=== PATIENT | female | born 1940 | race Caucasian/White ===

== ENCOUNTER → 2016-10-13 | Outpatient (CLI) | payer MEDICARE ==
[~2016-10-13] MED LIST: ALBU17IN INH; ALBU83IN INH; AMLO5TAB2 PO; ARNU1INH3 INH; ASPI1TAB PO; CALCCHW19 PO; CARV12.5 PO; CARV6.25 PO; CENTTAB12 PO; CO-E50CA PO; COLA100C5 PO; COMBAER6 INH; FLON1SPR; FOSA70TA PO; LEVO500T3 PO; LISI-538 PO; OMNASPR2; PANT40TA2 PO; PRED1TABL PO; PRED20TA PO; QVAR1AER2 INH; SALI0.6523; SIMV20TA2 PO; SPIR1CAP INH; VITA100066 PO; VITA500C24 PO
--- NOTE | 2016-10-13 09:54 | REPMRS ---
Patient History The patient states she has not had a clinical breast exam in over a year. Patient is postmenopausal and is nulliparous. Family history of prostate cancer in paternal grandfather at age 50 or over, breast cancer in sister at age 50 or over, breast cancer in paternal aunt at age 50 or over, and colorectal cancer in paternal grandmother at age 50 or over. Benign excisional biopsy of the left breast. Digital Woman Screen Mammo: October 13, 2016 - Exam #: [id number] Bilateral CC and MLO view(s) were taken. Technologist: Makenna Andrade, Technologist Prior study comparison: October 11, 2015, digital woman screen mammo performed at [facility]. October 09, 2014, digital woman screen mammo performed at [facility] [employer] [facility]. FINDINGS: There are scattered fibroglandular densities. There has been no change in the appearance of the mammogram from the prior studies. There is a mild amount of residual fibroglandular tissue which is fairly symmetric. There is no interval development of dominant mass, architectural distortion, or clustered microcalcification suggestive of malignancy. ASSESSMENT: BI-RADS/ACR category 1 mammogram. Negative. Recommendation Routine screening mammogram in 1 year (for women over age 40). This mammogram was interpreted with the aid of an FDA-approved computer-aided dectection system. Electronically Signed By: Jerome Hurley MD 10/13/16 [id number]
== END ==
LOC: M WHC 08:50
PROVIDERS: ATTEND Family Medicine
DX: Z12.31 Encounter for screening mammogram for malignant neoplasm of breast (principal); Z78.0 Asymptomatic menopausal state; Z80.3 Family history of malignant neoplasm of breast

== ENCOUNTER 2016-12-22 06:10 | Inpatient (IN) | payer MEDICARE ==
[~2016-12-22] VITALS: Ht 152.4 cm; Wt 70.0 kg
[~2016-12-22 06:10] MED LIST changes: -AMLO5TAB2 PO; -ARNU1INH3 INH; -CARV12.5 PO; -COMBAER6 INH; -FLON1SPR; -LEVO500T3 PO; -SALI0.6523
[2016-12-22] MEDS ORDERED: CARV12.5 PO (06:31)
[2016-12-22 06:58] LABS: MEAN CORPUSCULAR HEMOGLOBIN 31.9 pg (27.0-33.0); MEAN CORPUSCULAR HGB CONC 34.1 g/dl (32.0-36.5); MEAN CORPUSCULAR VOLUME 93.4 fl (80.0-96.0); PLATELET COUNT, AUTOMATED 225 10^3/uL (150-450); RED CELL DISTRIBUTION WIDTH 14.1 % (11.5-14.5); WHITE BLOOD COUNT 19.7 10^3/uL (4.0-10.0)
[2016-12-22] MEDS ORDERED: NS 500 ML IV ONE (07:00)
[2016-12-22 07:04] LABS: ADD MANUAL DIFFER YES; DIFF SLIDE NUMBER 134; LEFT SHIFT POS FLAG; POSITIVE MORPH POS FLAG
[2016-12-22 07:20] LABS: BANDS 3 % (< 11); TOXIC VACUOLATION 2+
[2016-12-22 07:43] LABS: ALBUMIN 2.1 GM/DL (3.2-5.2); ALBUMIN/GLOBULIN RATIO 0.45 (1.00-1.93); ALKALINE PHOSPHATASE 92 U/L (45-117); ALT/SGPT 14 U/L (12-78); ANION GAP 5 MEQ/L (8-16); AST/SGOT 13 U/L (15-37); BILIRUBIN,DIRECT 0.3 MG/DL (0.0-0.2); BILIRUBIN,TOTAL 0.6 MG/DL (0.2-1.0); BLOOD UREA NITROGEN 31 MG/DL (7-18); CALCIUM LEVEL 8.5 MG/DL (8.8-10.2); CARBON DIOXIDE LEVEL 30 MEQ/L (21-32); CHLORIDE LEVEL 103 MEQ/L (98-107); CREATININE FOR GFR 0.67 MG/DL (0.55-1.02); GLOMERULAR FILTRATION RATE > 60.0 (>39); GLUCOSE, FASTING 96 MG/DL (83-110); POTASSIUM SERUM 3.1 MEQ/L (3.5-5.1); SODIUM LEVEL 138 MEQ/L (136-145); TOTAL PROTEIN 6.8 GM/DL (6.4-8.2)
[2016-12-22] MEDS ORDERED: ONDANSETRON 4MG/2ML VIAL (J2405) IV ONE (07:45)
[2016-12-22] MEDS ORDERED: MORPHINE 2 MG/ML 1ML SYRINGE IV ONE (07:45)
[2016-12-22] MEDS: TIOTROPIUM INHALER/CAPSULE (SPIRIVA) INH SCH (08:00)
[2016-12-22] MEDS ORDERED: AZITHROMYCIN INJ 500 MG, VIAL MATE ADAPTER 1 EACH in D5W 250 ML IV ONE (08:30)
[2016-12-22] MEDS ORDERED: cefTRIAXone SOD 2 GM in D5W 50 ML IV ONE (08:30)
--- NOTE | 2016-12-22 08:51 | REP ---
ABDOMINAL SERIES: Supine and erect views of the abdomen demonstrate no free air and no evidence for obstruction. Mild air is seen throughout a nondistended colon. No significantly dilated small bowel loops are seen. Metallic clips are seen in the right upper quadrant. There are mild degenerative changes of the spine. An accompanying view of the chest demonstrates infiltrate and pleural effusion on the right inferiorly. The left lung appears clear. IMPRESSION: No free air or obstruction. Right lung infiltrate and effusion. Signed by Jerome Hurley MD 12/23/2016 07:37 P
[2016-12-22] MEDS ORDERED: POTASSIUM CHLORIDE 10 MEQ SR TABLET PO ONE (09:00)
[2016-12-22] MEDS ORDERED: LISINOPRIL 20 MG TAB PO SCH (09:00)
[2016-12-22] MEDS ORDERED: amLODIPine 5 MG TAB PO SCH (09:00)
[2016-12-22] MEDS ORDERED: CARVedilol 12.5 MG TAB PO SCH (09:00)
[2016-12-22] MEDS ORDERED: SALI0.6523 (09:34)
[2016-12-22] MEDS ORDERED: FLON1SPR (09:34)
[2016-12-22] MEDS ORDERED: AMLO5TAB2 PO (09:34)
[2016-12-22] MEDS ORDERED: ARNU1INH3 INH (09:34)
[2016-12-22] MEDS ORDERED: POTASSIUM CHL PWD 20 MEQ PACKET PO ONE (09:45)
--- NOTE | 2016-12-22 09:51 | REP ---
CT CHEST WITHOUT IV CONTRAST: CT chest was performed without IV contrast. There is diffuse heterogeneous consolidation with air bronchograms in the right lower lobe. Underlying mass cannot be excluded. Mildly enlarged mediastinal lymph nodes are seen. There is a small right pleural effusion. There is mild fibroatelectatic change in the left lung base. There is no pericardial effusion. Heart is not significantly enlarged. Patient has had a prior cholecystectomy. No adrenal nodule is seen. There appears to be a small cyst in the upper pole of the left kidney. IMPRESSION: Diffuse heterogeneous consolidation in the right lower lobe. Underlying mass cannot be excluded without IV contrast. Mild mediastinal adenopathy. Small right pleural effusion. Signed by Jerome Hurley MD 12/23/2016 07:48 P
[2016-12-22] MEDS ORDERED: ONDANSETRON 4MG/2ML VIAL (J2405) IV PRN (10:15)
[2016-12-22] MEDS ORDERED: ACETAMINOPHEN TAB 650MG DOSE (2X325MG) PO PRN (10:15)
[2016-12-22] MEDS ORDERED: ALBUTEROL SULFATE 2.5 MG/0.5 ML INH NEB SOLN INH PRN (10:15)
[2016-12-22 12:00] VITALS: BP 130/57
[2016-12-22] MEDS: CO-ENZYME Q10 50 MG CAP PO SCH (13:17)
[2016-12-22] MEDS: HEPARIN SOD (PORCINE) 5000 UNITS/ML VIAL SC SCH ×2 (13:17→20:33)
[2016-12-22] MEDS: MULTIVITAMINS/MINERALS THERAP 1 TAB PO SCH (13:17)
[2016-12-22] MEDS: predniSONE 1 MG TAB PO SCH (13:18)
[2016-12-22 13:19] VITALS: BP 135/65
[2016-12-22] MEDS: PANTOPRAZOLE 40MG TAB (PROTONIX) PO SCH (13:19)
[2016-12-22] MEDS: VITAMIN D 1,000 INTERNATIONAL UNITS TABLET PO SCH (13:20)
[2016-12-22] MEDS: ASCORBIC ACID 500 MG TAB PO SCH (13:20)
[2016-12-22] MEDS: SODIUM CHLORIDE NASAL 0.65% SPRAY BTL (OCEAN) SCH (13:21)
[2016-12-22] MEDS: FLUTICASONE PROP 0.05% NASAL SPRAY 16 GM (FLONASE) SCH (13:21)
--- NOTE | 2016-12-22 15:30 | HPE ---
DATE OF ADMISSION: 12/22/2016 PRIMARY CARE PROVIDER: Dr. Shelbie Izaguirre OUTPATIENT BIOCHEMISTRY TECHNICIAN: Dr. Sepulveda HISTORY OF PRESENT ILLNESS: This patient is a 76-year-old female with a past medical history of chronic obstructive pulmonary disease (COPD), hypertension, hypercholesterolemia, remote history of premature ventricular contraction (PVCs), and history of diverticulitis who presented to [facility] on 12/22/2016 for worsening shortness of breath. The patient stated she started having nausea, vomiting, and diarrhea since 12/19/2016. Then, the patient noted to have fever on 12/21/2016. In the last 24 hours, the patient also started noticing to have increased shortness of breath, increased productive cough, and the patient also noted to have significant pain in the right lateral rib radiating to the right shoulder blade. When the patient came to the emergency room, the patient was found to have elevated white count with right lower lobe consolidation. The patient has a history of COPD. At baseline, the patient does not require oxygen. Her sputum usually is clear. During the current episode, the patient does not notice any sputum color changes. Denies any recent sick contact. Denies any blood in the vomit or stool. PAST MEDICAL HISTORY: 1. Chronic obstructive pulmonary disease (COPD), not on home oxygen. 2. Hypertension. 3. Hypercholesterolemia. 4. History of diverticulitis. 5. Remote history of premature ventricular contractions (PVCs). PAST SURGICAL HISTORY: 1. Lumpectomy in , benign nodes. 2. Cholecystectomy in 1987. HOME MEDICATIONS: - Ventolin two puff inhalation every six hours as needed - amlodipine 5 mg by mouth daily - Ellipta 200 mcg inhalation daily - vitamin C 500 mg by mouth daily - aspirin 81 mg by mouth at bedtime - calcium/vitamin D supplement one tablet by mouth twice a day - carvedilol 12.5 mg by mouth twice a day - vitamin D 1000 units by mouth daily - Colace 100 mg by mouth at bedtime - lisinopril 20 mg by mouth twice a day - multivitamin one tablet by mouth daily - pantoprazole 40 mg by mouth daily - prednisone 2 mg by mouth daily - simvastatin 20 mg by mouth at bedtime - Spiriva 18 mcg inhalation every evening ALLERGIES: 1. SULFA (nausea and vomiting). 2. ORAL BIAXIN (severe stomach upset). SOCIAL HISTORY: The patient quit smoking in 2008, half a pack for more than 25 years. She drinks a few beers weekly. 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 The patient is a full code. REVIEW OF SYSTEMS: GENERAL: Positive fever. No shivering chills. Poor oral intake since 12/19/2016. HEENT: No vision changes. No auditory changes. CARDIOVASCULAR: No chest pain. No palpitation. RESPIRATORY: Increased shortness of breath, increased productive cough, and also has pain at the right lateral rib radiating to the right shoulder blade. GASTROINTESTINAL (GI): Positive nausea, vomiting, and diarrhea. No blood in the vomit or stool. MUSCULOSKELETAL: Denies any joint pain or muscle pain. NEUROLOGICAL: No numbness or tingling. OBJECTIVE: VITAL SIGNS: Temperature is 98.8, pulse is 97, respirations 20, blood pressure 130/57, pulse oximetry is 88% with 1-2 liters nasal cannula. GENERAL: Fatigues, no sign of acute distress, alert and oriented times three. HEENT: Normocephalic, atraumatic. Extraocular motor grossly intact. CARDIOVASCULAR: Positive S1, S2, regular rate. LUNGS: Decreased breath sounds on the right lower lobe. No significant wheezes appreciated. ABDOMEN: Soft, nontender, nondistended. Bowel sounds present. EXTREMITIES: No edema. No sign of cyanosis. NEUROLOGIC: Sensation to fine touch grossly intact. Muscle strength 5/5. LABORATORY DATA: WBC 18.7, hemoglobin 13, hematocrit 38.1, platelet count is 225. Sodium is 138, potassium 3.5, chloride is 103, carbon dioxide 30, BUN 31, creatinine 0.67, GFR greater than 60, fasting glucose 96, lactic acid 1.4, calcium 8.5, total bilirubin is 0.6, direct bilirubin is 0.3, AST 13, ALT 14, alkaline phosphatase is 92, total protein 6.8, albumin 2.1, lipase is 46. Blood cultures pending x2 sets. IMAGING STUDIES: Abdominal x-ray showed no free air or obstruction. Right lung infiltrate or infusion. CT of the chest without contrast showed diffuse heterogenous consolidation in the right lower lobe. Underlying mass cannot be excluded without IV contrast. Mild mediastinal adenopathy. Small right pleural effusion. ASSESSMENT AND PLAN: 1. Acute respiratory distress secondary to right lower lobe consolidation. We will treat the patient for community-acquired pneumonia. We will start the patient on Rocephin and azithromycin. We will titrate the oxygen between 88% to 92%. The patient has a history of chronic obstructive pulmonary disease (COPD) but she does not require oxygen at baseline. Currently, the patient requires at least two liters nasal cannula. 2. COPD. She does not have any increased wheeze. The patient does have increased cough and shortness of breath from current right lower lobe pneumonia. Continue to titrate the patient with nasal cannula to maintain oxygen saturation of 88% to 92%. The patient is on chronic steroids. 3. Hypertension. The patient is on amlodipine 5 mg by mouth daily, carvedilol 12.5 mg by mouth twice a day, lisinopril 20 mg by mouth twice a day. During admission, the patient had a few incidents of soft blood pressure. Amlodipine will be on hold. We will continue to titrate the patient's blood pressure medication. 4. Dyslipidemia, on simvastatin 20 mg by mouth at bedtime. 5. History of diverticulitis. 6. Remote history of premature ventricular contractions (PVCs). 7. Deep vein thrombosis (DVT) prophylaxis. The patient is on heparin.
[2016-12-22 16:00] VITALS: BP 95/52
[2016-12-22 18:00] VITALS: BP 108/64
[2016-12-22 20:00] VITALS: BP 106/52
[2016-12-22] MEDS: DOCUSATE SODIUM 100 MG CAP PO SCH (20:31)
[2016-12-22] MEDS: ASPIRIN 81 MG ENTERIC TAB PO SCH (20:31)
[2016-12-22] MEDS: SIMVASTATIN 20 MG TAB PO SCH (20:31)
--- NOTE | 2016-12-22 22:50 | ECGEPIP ---
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 Electronically Signed On 12-22-2016 22:50:12 EDT by Jair Velez
[2016-12-23 04:08] VITALS: BP 132/60
[2016-12-23] MEDS: HEPARIN SOD (PORCINE) 5000 UNITS/ML VIAL SC SCH ×3 (06:15→20:29)
[2016-12-23 06:57] LABS: MEAN CORPUSCULAR HEMOGLOBIN 31.7 pg (27.0-33.0); MEAN CORPUSCULAR HGB CONC 33.7 g/dl (32.0-36.5); MEAN CORPUSCULAR VOLUME 94.1 fl (80.0-96.0); RED CELL DISTRIBUTION WIDTH 14.4 % (11.5-14.5); WHITE BLOOD COUNT 12.1 10^3/uL (4.0-10.0)
[2016-12-23] MEDS: TIOTROPIUM INHALER/CAPSULE (SPIRIVA) INH SCH (07:23)
[2016-12-23 07:28] LABS: ANION GAP 5 MEQ/L (8-16); BLOOD UREA NITROGEN 32 MG/DL (7-18); CALCIUM LEVEL 8.3 MG/DL (8.8-10.2); CARBON DIOXIDE LEVEL 26 MEQ/L (21-32); CHLORIDE LEVEL 108 MEQ/L (98-107); CREATININE FOR GFR 0.64 MG/DL (0.55-1.02); GLOMERULAR FILTRATION RATE > 60.0 (>39); GLUCOSE, FASTING 85 MG/DL (83-110); MAGNESIUM LEVEL 2.3 MG/DL (1.8-2.4); POTASSIUM SERUM 3.9 MEQ/L (3.5-5.1); SODIUM LEVEL 139 MEQ/L (136-145)
[2016-12-23 08:00] VITALS: BP 108/59
[2016-12-23] MEDS: cefTRIAXone SOD 1 GM in D5W 50 ML IV SCH ×2 (08:37→20:28)
[2016-12-23] MEDS: PANTOPRAZOLE 40MG TAB (PROTONIX) PO SCH (08:38)
[2016-12-23] MEDS: CO-ENZYME Q10 50 MG CAP PO SCH (08:38)
[2016-12-23] MEDS: predniSONE 1 MG TAB PO SCH (08:38)
[2016-12-23] MEDS: VITAMIN D 1,000 INTERNATIONAL UNITS TABLET PO SCH (08:38)
[2016-12-23] MEDS: MULTIVITAMINS/MINERALS THERAP 1 TAB PO SCH (08:38)
[2016-12-23] MEDS: ASCORBIC ACID 500 MG TAB PO SCH (08:38)
[2016-12-23] MEDS: SODIUM CHLORIDE NASAL 0.65% SPRAY BTL (OCEAN) SCH (08:39)
[2016-12-23] MEDS: FLUTICASONE PROP 0.05% NASAL SPRAY 16 GM (FLONASE) SCH (08:39)
[2016-12-23] MEDS: ARNUITY ELLIPTA INH SCH (09:00)
[2016-12-23] MEDS: AZITHROMYCIN INJ 500 MG, VIAL MATE ADAPTER 1 EACH in D5W 250 ML IV SCH (09:58)
[2016-12-23] MEDS ORDERED: COMBAER6 INH (10:16)
[2016-12-23] MEDS: IPRATROPIUM 0.5MG/ALBUTEROL 2.5MG INH SOL UD 3ML (DUONEB)(J7620) NEB SCH ×2 (13:39→20:44)
--- NOTE | 2016-12-23 15:36 | IPN ---
DATE: 12/23/2016 SUBJECTIVE: The patient tells me that she is feeling better. She is breathing more easily. She still has persistent cough. She denies any episodes of nausea, vomiting, or diarrhea. OBJECTIVE: VITAL SIGNS: Temperature 98.1, pulse 92, respiratory rate 16, blood pressure 108/59, oxygen saturation 93% on two liters nasal cannula. While I am in the room, I take her off her nasal cannula and monitor her oxygen saturation. At rest, she remains at 92%. I do take up and ambulate her 50 feet and she desaturates to 89%, never dropping to 88% or below, but does become mildly short of breath. She tells me that this is significantly better than the previous day though. HEENT: She has moist mucous membranes. No elevation of central venous pressure (CVP). NEUROLOGIC: Cranial nerves II-XII are grossly intact. CARDIOVASCULAR EXAMINATION: S1, S2. She is not tachycardic. No distant heart sounds appreciated. RESPIRATORY EXAMINATION: Actually quite clear with good air movement today, some diminished breath sounds at the bases. ABDOMINAL EXAMINATION: Benign. EXTREMITIES: No clubbing, cyanosis, or edema. LABORATORY STUDIES: WBC 12.1 down from 19.7, hemoglobin 11.8, platelet count 202. Chemistry Panel: Sodium 139, potassium 3.9, chloride 108, bicarbonate 26, BUN 32, creatinine 0.6. MICROBIOLOGY: Two sets of blood cultures are negative. A sputum culture is pending. IMAGING STUDIES: The patient did have a CT scan of her chest which revealed diffuse heterogenous consolidation in the right lower lobe, underlying mass could not be excluded without IV contrast, mild mediastinal adenopathy, small right pleural effusion. Abdominal x-ray revealed no free air or obstruction but a right lung infiltrate and effusion. ASSESSMENT AND PLAN: This is a 76-year-old female with community-acquired pneumonia. PROBLEMS: 1. Community-acquired pneumonia. Given that she had a history of nausea, vomiting and diarrhea a day prior to the onset, I suspect that this may be secondary to an aspiration event during her vomiting. Her vomiting has resolved. She does appear to be improving with her current antibiotics regimen for community-acquired pneumonia and as such, we will continue. We will titrate her oxygen saturation between 88% to 92%. I suspect that if she is able to ambulate without oxygen need tomorrow then she will be well enough to go home, and at that time, she could likely be transitioned to oral levofloxacin. 2. Chronic obstructive pulmonary disease (COPD). There does not appear to be an acute decompensation. She is continued on her home Breo as well as I will provide her with DuoNebs, albuterol as needed, and we will continue with her home Spiriva. 3. Allergic rhinitis. The patient is continued on [place] nasal spray and Flonase. 4. Hypertension. At the present time, she does not appear to be needing her lisinopril or her carvedilol as her blood pressure is mildly soft. We will continue to monitor and restart as needed. 5. Dyslipidemia. Continue with simvastatin. 6. Vitamin D deficiency. She is on supplementation. 7. Deep vein thrombosis (DVT) prophylaxis. The patient is on heparin. DISPOSITION: I suspect the patient may be able to be discharged home within the next 24-48 hours.
[2016-12-23 16:00] VITALS: BP 119/54
[2016-12-23 20:00] VITALS: BP 141/68
[2016-12-23] MEDS: DOCUSATE SODIUM 100 MG CAP PO SCH (20:28)
[2016-12-23] MEDS: SIMVASTATIN 20 MG TAB PO SCH (20:28)
[2016-12-23] MEDS: ASPIRIN 81 MG ENTERIC TAB PO SCH (20:28)
[2016-12-24] VITALS: BP 120/60
[2016-12-24] MEDS: IPRATROPIUM 0.5MG/ALBUTEROL 2.5MG INH SOL UD 3ML (DUONEB)(J7620) NEB SCH ×2 (00:56→07:00)
[2016-12-24] MEDS: HEPARIN SOD (PORCINE) 5000 UNITS/ML VIAL SC SCH (06:40)
[2016-12-24] MEDS: TIOTROPIUM INHALER/CAPSULE (SPIRIVA) INH SCH (07:00)
[2016-12-24 08:00] VITALS: BP 164/78
[2016-12-24] MEDS: cefTRIAXone SOD 1 GM in D5W 50 ML IV SCH (08:05)
[2016-12-24 08:36] LABS: ANION GAP 8 MEQ/L (8-16); BLOOD UREA NITROGEN 27 MG/DL (7-18); CALCIUM LEVEL 8.4 MG/DL (8.8-10.2); CARBON DIOXIDE LEVEL 26 MEQ/L (21-32); CHLORIDE LEVEL 107 MEQ/L (98-107); GLOMERULAR FILTRATION RATE > 60.0 (>39); GLUCOSE, FASTING 93 MG/DL (83-110); MAGNESIUM LEVEL 2.2 MG/DL (1.8-2.4); SODIUM LEVEL 141 MEQ/L (136-145)
[2016-12-24 09:00] LABS: MEAN CORPUSCULAR HEMOGLOBIN 31.4 pg (27.0-33.0); MEAN CORPUSCULAR HGB CONC 33.5 g/dl (32.0-36.5); MEAN CORPUSCULAR VOLUME 93.7 fl (80.0-96.0); RED CELL DISTRIBUTION WIDTH 14.3 % (11.5-14.5); WHITE BLOOD COUNT 9.7 10^3/uL (4.0-10.0)
[2016-12-24] MEDS: CO-ENZYME Q10 50 MG CAP PO SCH (09:22)
[2016-12-24] MEDS: MULTIVITAMINS/MINERALS THERAP 1 TAB PO SCH (09:22)
[2016-12-24] MEDS: VITAMIN D 1,000 INTERNATIONAL UNITS TABLET PO SCH (09:22)
[2016-12-24] MEDS: AZITHROMYCIN INJ 500 MG, VIAL MATE ADAPTER 1 EACH in D5W 250 ML IV SCH (09:22)
[2016-12-24] MEDS: predniSONE 1 MG TAB PO SCH (09:22)
[2016-12-24] MEDS: PANTOPRAZOLE 40MG TAB (PROTONIX) PO SCH (09:22)
[2016-12-24] MEDS: ASCORBIC ACID 500 MG TAB PO SCH (09:22)
[2016-12-24] MEDS: FLUTICASONE PROP 0.05% NASAL SPRAY 16 GM (FLONASE) SCH (09:27)
[2016-12-24] MEDS: SODIUM CHLORIDE NASAL 0.65% SPRAY BTL (OCEAN) SCH (09:27)
[2016-12-24] MEDS: ARNUITY ELLIPTA INH SCH (09:37)
[2016-12-24] MEDS ORDERED: LEVO500T3 PO (09:55)
[2016-12-24] MEDS ORDERED: AZITHROMYCIN 250 MG TAB PO ONE (10:30)
--- NOTE | 2016-12-24 16:07 | DSES ---
DATE OF ADMISSION: 12/22/2016 DATE OF DISCHARGE: 12/24/2016 DISCHARGE DIAGNOSIS: Pneumonia. SECONDARY DIAGNOSES: 1. Chronic obstructive pulmonary disease (COPD). 2. Allergic rhinitis. 3. Hypertension. 4. Dyslipidemia. 5. Vitamin D deficiency. HOSPITAL COURSE: The patient is a 76-year-old female who had several days of nausea, vomiting, and diarrhea which spontaneously resolved. However, shortly thereafter she began to develop a cough and shortness of breath. She was found to be hypoxic with a low grade temperature and leukocytosis, prompting her to be admitted to the hospitalist service. There was some concern for pneumonia versus aspiration pneumonia following vomiting. She was started on ceftriaxone and azithromycin and her symptoms did quickly improve. Her hypoxia resolved and leukocytosis resolved within 48 hours. She remained afebrile. SUBJECTIVE: This morning, the patient tells me she is up and ambulating, feels well, and has no complaints. OBJECTIVE: VITAL SIGNS: Temperature 98.5, maximum temperature (T-max) 99, heart rate 99, respiratory rate 20, blood pressure 164/78, oxygen saturation 94% on room air. I get up and ambulate the patient 100 feet on room air and her saturations never dropped below 90. GENERAL: She is a pleasant, elderly, female up and ambulating independently in no acute distress. HEENT: Cranial nerves II-XII are grossly intact. She has moist mucous membranes. No elevation in central venous pressure (CVP). CARDIOVASCULAR EXAM: S1, S2, regular. RESPIRATORY EXAM: Actually quite clear. No end-inspiratory wheezes appreciated. ABDOMINAL EXAM: Benign. EXTREMITIES: No clubbing, cyanosis, or edema. LABORATORY STUDIES: WBC 9.7, hemoglobin 12.4, platelet count 276. Chemistry panel: Sodium 141, potassium 4.0, chloride 107, bicarbonate 26, BUN 27, creatinine 0.6. Microbiology: Blood cultures are negative at 48 hours. Sputum culture is currently pending. IMAGING: The patient did have a CT scan of the chest at the time of admission that revealed diffuse heterogenous consolidation in the right lower lobe. An underlying mass could not be excluded without IV contrast. A small right pleural effusion. ASSESSMENT AND PLAN: This is a 76-year-old female with pneumonia. 1. Pneumonia. Does appear to be improving on treatment for community-acquired pneumonia, her symptoms have resolved, she is at her baseline. At this time, her antibiotic will be changed to levofloxacin by mouth to complete five additional days at 500 mg to complete a course of treatment for pneumonia. Her oxygen has been weaned back to her baseline on room air with activity. She has had no nausea, vomiting, or diarrhea while hospitalized. Leukocytosis has resolved. She is at her baseline functioning status and is medically stable for discharge home. I do recommend that she have repeat imaging within the next 6 weeks after resolution of her symptoms to ensure resolution of her right lower lobe consolidative process and ensure there is no underlying mass. 2. Chronic obstructive pulmonary disease (COPD). Not in acute decompensation. She was continued on her home inhalers and provided with DuoNebs while in hospital as well as her home Spiriva. She will resume all of her home medications upon discharge. 3. Allergic rhinitis. She was continued on [place] Nasal [place] and Flonase. 4. Hypertension. She actually did not require her antihypertensives during her stay. Her lisinopril and carvedilol were on hold and her blood pressure was mildly soft. I have advised her to stop taking these medications for today and to continue checking her blood pressure at home as she normally does. If her blood pressure becomes over systolic of 140, she should resume these medications, however at this time she does not require them. She is to followup with her primary care provider (PCP) within 7 days regarding this. 5. Dyslipidemia. Continue with simvastatin. 6. Vitamin D deficiency. She is on supplementation. 7. Gastroesophageal reflux disease. Continue with pantoprazole. DISPOSITION: The patient is being discharged home where she lives alone. She is independent in her activities of daily living (ADLs) and at her functional baseline. All of her questions were answered to her satisfaction and to her sister's satisfaction. She will followup with her primary care provider (PCP) within 7 days. Her activity and diet are as prior to admission. She is to return to the emergency room (ER) if her symptoms worsen. MEDICATIONS: At the time of discharge: - levofloxacin 500 mg daily - Ventolin HFA two puffs every 6 hours as needed for shortness of breath - albuterol nebulizers every 6 hours as needed for shortness of breath - Combivent one puff inhaled daily - Arnuity Ellipta 200 mcg inhaled daily - vitamin C 500 mg daily - aspirin 81 nightly - calcium with vitamin D twice a day - vitamin D 1000 units daily - coenzyme-Q 50 mg daily - Colace 100 mg nightly - Flonase 50 mcg two sprays to the nares inhaled daily - Centrum one tablet by mouth daily - pantoprazole 40 mg daily - prednisone 2 mg daily - saline nasal spray one spray to the nares daily - simvastatin 20 mg nightly - Spiriva 18 mcg inhaled every evening Greater than 30 minutes spent organizing disposition.
== END 2016-12-24 11:25 | disposition home or self-care (01) | DRG 178 ==
LOC: M ED 06:10 → M ED INP 10:06 → M PED 11:54
PROVIDERS: ADMIT Internal Medicine; ATTEND Internal Medicine
DX: J69.0 Pneumonitis due to inhalation of food and vomit (principal); J44.0 Chronic obstructive pulmonary disease with (acute) lower respiratory infection; I10 Essential (primary) hypertension; E78.00 Pure hypercholesterolemia, unspecified; K21.9 Gastro-esophageal reflux disease without esophagitis; J30.9 Allergic rhinitis, unspecified; E78.5 Hyperlipidemia, unspecified; Z90.49 Acquired absence of other specified parts of digestive tract; Z79.82 Long term (current) use of aspirin; Z79.52 Long term (current) use of systemic steroids; Z79.899 Other long term (current) drug therapy; Z88.2 Allergy status to sulfonamides; Z88.8 Allergy status to other drugs, medicaments and biological substances; Z87.891 Personal history of nicotine dependence

== ENCOUNTER 2017-03-08 09:00 | Emergency (ER) | payer MEDICARE ==
[2017-03-08] MEDS: IPRATROPIUM 0.5MG/ALBUTEROL 2.5MG INH SOL UD 3ML (DUONEB)(J7620) NEB (09:47)
[2017-03-08] MEDS: predniSONE 20 MG TAB PO (09:48)
== END 2017-03-08 10:47 | disposition home or self-care (01) ==
LOC: M ED 09:00
DX: J44.1 Chronic obstructive pulmonary disease with (acute) exacerbation (principal); I10 Essential (primary) hypertension; J45.909 Unspecified asthma, uncomplicated; E78.00 Pure hypercholesterolemia, unspecified; Z87.09 Personal history of other diseases of the respiratory system; Z87.19 Personal history of other diseases of the digestive system; Z79.82 Long term (current) use of aspirin; Z79.51 Long term (current) use of inhaled steroids; Z88.1 Allergy status to other antibiotic agents; Z88.2 Allergy status to sulfonamides; Z88.8 Allergy status to other drugs, medicaments and biological substances
CPT/HCPCS: 71020

== ENCOUNTER → 2017-04-11 | Outpatient (REF) | payer MEDICARE | LOC: M LAB REF 13:29 | DX: J44.1 Chronic obstructive pulmonary disease with (acute) exacerbation (principal) | CPT/HCPCS: 87205 ==

== ENCOUNTER → 2017-04-13 | Outpatient (CLI) | payer MEDICARE | LOC: M RAD 13:34 | DX: J44.1 Chronic obstructive pulmonary disease with (acute) exacerbation (principal) | CPT/HCPCS: 71046 ==

== ENCOUNTER → 2017-07-28 | Outpatient (CLI) | payer MEDICARE ==
[2017-07-28 10:36] LABS: HEMATOCRIT 41.4 % (36.0-47.0); HEMOGLOBIN 13.6 g/dl (12.0-15.5); MEAN CORPUSCULAR HEMOGLOBIN 31.5 pg (27.0-33.0); MEAN CORPUSCULAR HGB CONC 32.9 g/dl (32.0-36.5); MEAN CORPUSCULAR VOLUME 95.8 fl (80.0-96.0); PLATELET COUNT, AUTOMATED 258 10^3/uL (150-450); RED BLOOD COUNT 4.32 10^6/uL (4.00-5.40); RED CELL DISTRIBUTION WIDTH 14.1 % (11.5-14.5); WHITE BLOOD COUNT 8.4 10^3/uL (4.0-10.0)
[2017-07-28 11:17] LABS: ALBUMIN 3.3 GM/DL (3.2-5.2); ALBUMIN/GLOBULIN RATIO 0.87 (1.00-1.93); ALKALINE PHOSPHATASE 51 U/L (45-117); ALT/SGPT 17 U/L (12-78); ANION GAP 6 MEQ/L (8-16); AST/SGOT 17 U/L (7-37); BILIRUBIN,TOTAL 0.3 MG/DL (0.2-1.0); BLOOD UREA NITROGEN 13 MG/DL (7-18); CALCIUM LEVEL 8.9 MG/DL (8.8-10.2); CARBON DIOXIDE LEVEL 30 MEQ/L (21-32); CHLORIDE LEVEL 107 MEQ/L (98-107); CHOLESTEROL LEVEL 145 MG/DL (<200); CHOLESTEROL RISK RATIO 2.338 (<5); CREATININE FOR GFR 0.77 MG/DL (0.55-1.30); GLOMERULAR FILTRATION RATE > 60.0 (>39); GLUCOSE, FASTING 89 MG/DL (70-100); HDL CHOLESTEROL 62 MG/DL (>40); NON-HDL-C 83 MG/DL; POTASSIUM SERUM 3.8 MEQ/L (3.5-5.1); SODIUM LEVEL 143 MEQ/L (136-145); TOTAL PROTEIN 7.1 GM/DL (6.4-8.2); TRIGLYCERIDES LEVEL 100 MG/DL (<150)
== END ==
LOC: M LAB 10:01
DX: I10 Essential (primary) hypertension (principal)
CPT/HCPCS: 71046

== ENCOUNTER 2017-08-12 10:48 | Day surgery (SDC) | payer MEDICARE ==
[~2017-08-12 10:48] MED LIST changes: +ACETAMINOPHEN 325 MG TAB PO; -ALBU17IN INH; -ALBU83IN INH; -ASPI1TAB PO; -CALCCHW19 PO; -CARV6.25 PO; -CENTTAB12 PO; -CO-E50CA PO; -COLA100C5 PO; -FOSA70TA PO; -LISI-538 PO; -OMNASPR2; -PANT40TA2 PO; +PHENYLEPHRINE HCL 10 % OPHTH. SOL 5ML OD; -PRED1TABL PO; -PRED20TA PO; +PROPARACAINE 0.5% OPHTH SOL 15ML OD; -QVAR1AER2 INH; -SIMV20TA2 PO; -SPIR1CAP INH; -VITA100066 PO; -VITA500C24 PO
[2017-08-12] MEDS: TROPICAMIDE 1% OPHTH SOLN 2ML OD (11:42)
[2017-08-12] MEDS: LIDOCAINE 3.5 % 1ML OPHTH TOPICAL GEL OU (11:42)
[2017-08-12] MEDS: CYCLOPENTOLATE 2% OPHTH SOLN 2ML BTL OD (11:42)
[2017-08-12] MEDS: PHENYLEPHRINE 2.5% OPHTH SOL 2ML OD (11:42)
[2017-08-12] MEDS: OFLOXACIN 0.3 % (OCUFLOX) OPTH SOL 5ML OD (11:42)
[2017-08-12] MEDS ORDERED: MIDAZOLAM INJ 2 MG/2 ML VIAL (J2250) As Ordered (12:37)
[2017-08-12] MEDS ORDERED: fentaNYL 100 MCG/2 ML INJECTION (J3010) As Ordered (12:37)
[2017-08-12] MEDS: POVIDONE-IODINE 5% OPHTH PREP SOL 30ML As Ordered (12:43)
[2017-08-12] MEDS: BALANCED SALT IRRIGATION SOLUTION 500ML BAG (FOR OR EYE MACHINE) As Ordered (12:43)
[2017-08-12] MEDS: HEALON DUET (HEALON 10MG/ML 0.55ML & HEALON ENDOCOAT 30MG/ML 0.85ML) As Ordered (12:43)
[2017-08-12] MEDS: LIDOCAINE 1% SDV 5 ML VIAL As Ordered (12:44)
[2017-08-12] MEDS: CEFUROXIME 1MG/0.1ML INTRACAMERAL INJ As Ordered (12:44)
[2017-08-12] MEDS: KETOROLAC 0.5% OPHTH SOLN OD (13:10)
[2017-08-12] MEDS ORDERED: TRIMETHOBENZAMIDE 300 MG CAP PO (13:15)
== END 2017-08-12 13:35 | disposition home or self-care (01) ==
LOC: M SDC 10:48
DX: H25.11 Age-related nuclear cataract, right eye (principal); I10 Essential (primary) hypertension; E78.5 Hyperlipidemia, unspecified; J44.9 Chronic obstructive pulmonary disease, unspecified; Z79.899 Other long term (current) drug therapy; Z87.891 Personal history of nicotine dependence; Z88.2 Allergy status to sulfonamides; Z88.8 Allergy status to other drugs, medicaments and biological substances
CPT/HCPCS: 66984

== ENCOUNTER → 2017-12-09 | Outpatient (REF) | payer MEDICARE | LOC: M LAB REF 17:24 | DX: J44.1 Chronic obstructive pulmonary disease with (acute) exacerbation (principal) | CPT/HCPCS: 87186 ==

== ENCOUNTER 2017-12-16 11:29 | Emergency (ER) | payer MEDICARE ==
[2017-12-16 12:26] LABS: VENOUS BASE EXCESS 1.3 (-2.0-2.0); VENOUS HCO3 25.7 MEQ/L (23.0-27.0); VENOUS O2 SATURATION 99.4 % (60.0-80.0); VENOUS PARTIAL PRESSURE CO2 40.3 mmHg (38.0-50.0); VENOUS PARTIAL PRESSURE O2 197.4 mmHg (30.0-50.0); VENOUS PH 7.423 UNITS (7.330-7.430); VENOUS STANDARD HCO3 25.6 MEQ/L
[2017-12-16 12:28] LABS: BASO % 0.3 % (0.0-1.0); EOS % 0.2 % (0.0-3.0); HEMATOCRIT 43.8 % (36.0-47.0); IMMATURE GRANULOCYTE % 1.3 % (0-3.0); LYMPH % 8.1 % (24.0-44.0); MEAN CORPUSCULAR HEMOGLOBIN 31.7 pg (27.0-33.0); MEAN CORPUSCULAR HGB CONC 34.2 g/dl (32.0-36.5); MEAN CORPUSCULAR VOLUME 92.6 fl (80.0-96.0); MONO # 0.2 10^3/uL (0.0-0.8); MONO % 1.9 % (0.0-5.0); NEUTROPHILS # 11.4 10^3/uL (1.8-7.7); NEUTROPHILS % 88.2 % (36.0-66.0); PLATELET COUNT, AUTOMATED 201 10^3/uL (150-450); RED BLOOD COUNT 4.73 10^6/uL (4.00-5.40); RED CELL DISTRIBUTION WIDTH 13.6 % (11.5-14.5); WHITE BLOOD COUNT 12.9 10^3/uL (4.0-10.0)
[2017-12-16 12:51] LABS: LACTIC ACID SEPSIS PROTOCOL 1.4 MMOL/L (0.4-2.0)
[2017-12-16] MEDS: IPRATROPIUM 0.5MG/ALBUTEROL 2.5MG INH SOL UD 3ML (DUONEB)(J7620) NEB ×2 (13:00→13:15)
[2017-12-16 13:18] LABS: ALBUMIN 3.1 GM/DL (3.2-5.2); ALBUMIN/GLOBULIN RATIO 0.79 (1.00-1.93); ALKALINE PHOSPHATASE 46 U/L (45-117); ALT/SGPT 21 U/L (12-78); ANION GAP 6 MEQ/L (8-16); AST/SGOT 15 U/L (7-37); BILIRUBIN,DIRECT 0.2 MG/DL (0.0-0.2); BILIRUBIN,TOTAL 0.5 MG/DL (0.2-1.0); BLOOD UREA NITROGEN 17 MG/DL (7-18); CALCIUM LEVEL 8.2 MG/DL (8.8-10.2); CARBON DIOXIDE LEVEL 29 MEQ/L (21-32); CHLORIDE LEVEL 104 MEQ/L (98-107); CPK CREATINE PHOSPHOKINASE 48 U/L (26-192); CREATININE FOR GFR 0.78 MG/DL (0.55-1.30); GLOMERULAR FILTRATION RATE > 60.0 (>39); GLUCOSE, FASTING 100 MG/DL (70-100); MB/CK RELATIVE INDEX 3.12 (< OR =4); POTASSIUM SERUM 4.4 MEQ/L (3.5-5.1); SODIUM LEVEL 139 MEQ/L (136-145); THYROID STIMULATING HORMONE 0.576 uIU/ML (0.358-3.740); TROPONIN I < 0.02 NG/ML (< 0.10)
[2017-12-16] MEDS: methylPREDNISolone INJ 125 MG/2 ML VIAL (J2930) IV (13:32)
== END 2017-12-16 15:04 | disposition home or self-care (01) ==
LOC: M ED 11:29
DX: J44.1 Chronic obstructive pulmonary disease with (acute) exacerbation (principal); J98.09 Other diseases of bronchus, not elsewhere classified; I10 Essential (primary) hypertension; E78.5 Hyperlipidemia, unspecified; Z79.899 Other long term (current) drug therapy; Z88.2 Allergy status to sulfonamides; Z88.8 Allergy status to other drugs, medicaments and biological substances; Z87.891 Personal history of nicotine dependence
CPT/HCPCS: J2930

== ENCOUNTER 2017-12-18 07:12 | Observation (INO) | payer MEDICARE ==
[~2017-12-18] VITALS: Ht 154.9 cm; Wt 65.0 kg
[~2017-12-18 07:12] MED LIST changes: -ACETAMINOPHEN 325 MG TAB PO; +ALAW0.02; +ALBU17IN INH; +ALBU83IN INH; +AMLO5TAB6 PO; +ARNU1INH3 INH; +ASPI1TAB PO; +CALCCHW19 PO; +CARV12.5 PO; +CARV6.25 PO; +CENTTAB12 PO; +CO-E50CA PO; +COLA100C5 PO; +COMBAER6 INH; +DOXY-350 PO; +DOXY100C PO; +FLON1SPR; +FOSA70TA PO; +LEVO500T3 PO; +LISI-538 PO; +MUCI600T37 PO; +OMNASPR2; +PANT40TA3 PO; -PHENYLEPHRINE HCL 10 % OPHTH. SOL 5ML OD; +PRED10TA2 PO; +PRED1TABL PO; +PRED20TA PO; -PROPARACAINE 0.5% OPHTH SOL 15ML OD; +QVAR80AE10 INH; +SALI0.6528; +SIMV20TA2 PO; +SPIR1CAP INH; +VITA100066 PO; +VITA500C24 PO; +ZYRT10CA5 PO
[2017-12-18] MEDS ORDERED: methylPREDNISolone INJ 125 MG/2 ML VIAL (J2930) IV ONE (07:30)
[2017-12-18] MEDS: IPRATROPIUM 0.5MG/ALBUTEROL 2.5MG INH SOL UD 3ML (DUONEB)(J7620) NEB PRN ×2 (07:48→07:49)
[2017-12-18 08:03] LABS: ABG BASE EXCESS 2.1 (-2.0-2.0); ABG HCO3 27.3 MEQ/L (22.0-26.0); ABG O2 SATURATION 95.3 % (95.0-99.0); ABG PARTIAL PRESSURE CO2 44.7 mmHg (35.0-45.0); ABG STANDARD HCO3 26.3 MEQ/L (22.0-26.0); ABG TOTAL CO2 28.7 MEQ/L (23.0-31.0); ABG pH (ARTERIAL) 7.404 UNITS (7.350-7.450)
[2017-12-18 08:11] LABS: BASO % 0.2 % (0.0-1.0); EOS % 0.2 % (0.0-3.0); HEMATOCRIT 45.7 % (36.0-47.0); HEMOGLOBIN 15.5 g/dl (12.0-15.5); LYMPH # 1.4 10^3/uL (1.5-4.5); LYMPH % 10.5 % (24.0-44.0); MEAN CORPUSCULAR HEMOGLOBIN 31.8 pg (27.0-33.0); MEAN CORPUSCULAR HGB CONC 33.9 g/dl (32.0-36.5); MEAN CORPUSCULAR VOLUME 93.8 fl (80.0-96.0); MONO % 7.5 % (0.0-5.0); NEUTROPHILS # 10.7 10^3/uL (1.8-7.7); NEUTROPHILS % 79.9 % (36.0-66.0); PLATELET COUNT, AUTOMATED 222 10^3/uL (150-450); RED BLOOD COUNT 4.87 10^6/uL (4.00-5.40); WHITE BLOOD COUNT 13.4 10^3/uL (4.0-10.0)
--- NOTE | 2017-12-18 08:32 | REP ---
Clinical: Cough and dyspnea . Comparison: 12/16/2017 . Technique: PA and lateral. Findings: The mediastinum and cardiac silhouette are normal. The lung rubio are clear and without acute consolidation, effusion, or pneumothorax. The skeletal structures are intact and normal. Impression: 1. No acute cardiopulmonary process. Electronically Signed by Stuart Jean MD 12/18/2017 08:23 A
[2017-12-18 08:43] LABS: BLOOD UREA NITROGEN 21 MG/DL (7-18); CALCIUM LEVEL 8.9 MG/DL (8.8-10.2); CARBON DIOXIDE LEVEL 29 MEQ/L (21-32); CHLORIDE LEVEL 101 MEQ/L (98-107); CPK CREATINE PHOSPHOKINASE 77 U/L (26-192); CREATININE FOR GFR 0.88 MG/DL (0.55-1.30); GLOMERULAR FILTRATION RATE > 60.0 (>39); GLUCOSE, FASTING 81 MG/DL (70-100); MB/CK RELATIVE INDEX 3.38 (< OR =4); NT-PRO BNP 658 PG/ML (<450); POTASSIUM SERUM 4.1 MEQ/L (3.5-5.1); SODIUM LEVEL 139 MEQ/L (136-145); TROPONIN I < 0.02 NG/ML (< 0.10)
[2017-12-18] MEDS ORDERED: ACETAMINOPHEN TAB 650MG DOSE (2X325MG) PO PRN (09:15)
[2017-12-18] MEDS ORDERED: ONDANSETRON 4MG/2ML VIAL (J2405) IV PRN (09:15)
[2017-12-18] MEDS ORDERED: IPRATROPIUM 0.5MG/ALBUTEROL 2.5MG INH SOL UD 3ML (DUONEB)(J7620) NEB PRN (09:15)
[2017-12-18] MEDS: LevoFLOXacin 500 MG TABLET PO SCH (09:50)
[2017-12-18] MEDS: ENOXAPARIN 40 MG/0.4 ML SYRINGE (J1650) SC SCH (09:50)
[2017-12-18] MEDS ORDERED: VENTAER INH (10:01)
[2017-12-18 10:34] VITALS: BP 123/67
--- NOTE | 2017-12-18 12:18 | ECGEPIP ---
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
[2017-12-18] MEDS: IPRATROPIUM 0.5MG/ALBUTEROL 2.5MG INH SOL UD 3ML (DUONEB)(J7620) NEB SCH (15:20)
--- NOTE | 2017-12-18 17:54 | HPEPDOC ---
[facility] Medical History & Physical Date of Admission Dec 18, 2017 Primary Care Physician: Cassia Izaguirre Attending Physician: JENNIFER PAYNE DO History and Physical PCP: Dr. Amin Cardiology: Dr. Us Pulmonology: Dr. Sepulveda/Tristen Shell PA-C CC: shortness of breath, patient and ED provider felt unsafe to d/c home. HISTORY OF PRESENT ILLNESS: 77 yo female with history of COPD, having increasing shortness of breath and intermittent productive sputum for about a week. Seen by [facility] this past week and given Rx for doxycycline and prednisone. She feels it hasn't helped. Her sister is also concerned with her increased weakness. She's felt that she's had subjective fevers and chills without rigors. At baseline she says she is not on oxygen supplementation. Denies: n/v/d, CP or hemoptysis. PAST MEDICAL HISTORY: 1. Chronic obstructive pulmonary disease (COPD), not on home oxygen. 2. Hypertension. 3. Hypercholesterolemia. 4. History of diverticulitis. 5. Remote history of premature ventricular contractions (PVCs). PAST SURGICAL HISTORY: 1. Lumpectomy in , benign nodes. 2. Cholecystectomy in 1987. FAMILY HISTORY: Noncontributory SOCIAL HISTORY: Quit smoking 2008 She drinks a few beers weekly. Denies: illicit drug use No recent travel or sick contacts. REVIEW OF SYSTEMS: CONSTITUTIONAL: subjective fever, chills. No weight loss, nausea or vomiting. HEENT: No headache, lightheadedness, blurred or loss of vision. No difficulty with speech or swallow. CARDIOVASCULAR: No chest pain, palpitations, paroxysmal nocturnal dyspnea or lower extremity edema RESPIRATORY: intermittent productive cough, wheeze, shortness of breath and dyspnea on exertion. GENITOURINARY: No dysuria, frequency, or discharge MUSCULOSKELETAL: No bone, muscle or joint pain. GASTROINTESTINAL: No Nausea, vomiting, change in appetite. Bowel movements are regular without hematochezia or melena. No bladder or bowel incontinence. SKIN: No complaint of lesions, abrasions or rashes NEUROLOGICAL: No blurred vision, headaches, paresthesia or paralysis PSYCHIATRIC: No depression, anxiety, audiovisual hallucinations. No suicidal ideations. ENDOCRINE: Denies history of diabetes or thyroid disorder. No history of endocrine abnormalities. HEMATOLOGIC/ONCOLOGIC: No bleeding or bruising. No history of cancer. No history of VTE. LYMPHATIC: No lumps, bumps or swelling of neck, axilla or groin. No night sweats or weight loss. HOME MEDICATIONS: See below ALLERGIES: See below. PHYSICAL EXAMINATION: VITAL SIGNS: Please see below. GENERAL: NAD, A&OX3, Pleasant HEENT: PERRLA, throat clear, neck supple, no JVD CARDIOVASCULAR: RRR RESPIRATORY: diminished bibasilar breath sounds with expiratory wheeze ABDOMINAL: soft, NT/ND normoactive bowel sounds EXTREMITIES: no edema/no calf tenderness NEUROLOGICAL: CN'S II-XII grossly intact PSYCHOLOGICAL: negative LABORATORY DATA, IMAGING STUDIES, and MICROBIOLOGY: Please see below. 12 LEAD ECG: NSR without acute ST-Twave abnormality CXR: hyperinflation, flattening of diaphragm and increased AP diameter noted, but no acute cardiopulmonary processes. IMPRESSION: 77 yo female with h/o COPD experiencing increased shortness of breath, cough and wheeze. PROBLEM LIST: COPD Exacerbation 2. Hypertension. 3. Hypercholesterolemia. 4. History of diverticulitis. 5. Remote history of premature ventricular contractions (PVCs). PLAN: Admit as observation. D/c doxycycline. IV Solu-Medrol, duo-nebs, Levaquin Will likely d/c on prednisone taper and Levaquin. Supplemental oxygen with titration orders for sats>88% Reconcile home medications. DVT PROPHYLAXIS: SQ Lovenox DISPOSITION: Pending clinical improvement. ESTIMATED LOS: likely home tomorrow. CODE STATUS: full code. Vital Signs Vital Signs Date Time Temp Pulse Resp B/P (MAP) Pulse Ox O2 Delivery O2 Flow Rate FiO2 12/18/17 15:20 20 12/18/17 13:27 92 12/18/17 10:34 98.3 123/67 (85) 95 Nasal Cannula 2.0 Laboratory Data Labs 24H Laboratory Tests 2 12/18/17 07:53: Blood Gas Bicarbonate Standard 26.3H, Arterial Blood pH 7.404, Arterial Blood Partial Pressure CO2 44.7, Arterial Blood Partial Pressure O2 76.0, Arterial Blood Total CO2 28.7, Arterial Blood HCO3 27.3H, Arterial Blood Base Excess 2.1H, Arterial Blood Oxygen Saturation 95.3 12/18/17 07:54: Immature Granulocyte % (Auto) 1.7, White Blood Count 13.4H, Red Blood Count 4.87, Hemoglobin 15.5, Hematocrit 45.7, Mean Corpuscular Volume 93.8, Mean Corpuscular Hemoglobin 31.8, Mean Corpuscular Hemoglobin Concent 33.9, Red Cell Distribution Width 13.6, Platelet Count 222, Neutrophils (%) (Auto) 79.9H, Lymphocytes (%) (Auto) 10.5L, Monocytes (%) (Auto) 7.5H, Eosinophils (%) (Auto) 0.2, Basophils (%) (Auto) 0.2, Neutrophils # (Auto) 10.7H, Lymphocytes # (Auto) 1.4L, Monocytes # (Auto) 1.0H, Eosinophils # (Auto) 0.0, Basophils # (Auto) 0.0, Nucleated Red Blood Cells % (auto) 0.0, Anion Gap 9, Glomerular Filtration Rate > 60.0, Blood Urea Nitrogen 21H, Creatinine 0.88, Sodium Level 139, Potassium Level 4.1, Chloride Level 101, Carbon Dioxide Level 29, Calcium Level 8.9, Total Creatine Kinase 77, Creatine Kinase MB 3.0, Creatine Kinase MB Relative Index 3.38, Troponin I < 0.02, TT-Lpn-O-Type Natriuretic Peptide 658H, Thyroid Stimulating Hormone (TSH) 2.170 CBC/BMP Laboratory Tests 12/18/17 07:54 Red Blood Count 4.87, Mean Corpuscular Volume 93.8, Mean Corpuscular Hemoglobin 31.8, Mean Corpuscular Hemoglobin Concent 33.9, Red Cell Distribution Width 13.6, Neutrophils (%) (Auto) 79.9 H, Lymphocytes (%) (Auto) 10.5 L, Monocytes (% ) (Auto) 7.5 H, Eosinophils (%) (Auto) 0.2, Basophils (%) (Auto) 0.2, Neutrophils # (Auto) 10.7 H, Lymphocytes # (Auto) 1.4 L, Monocytes # (Auto) 1.0 H, Eosinophils # (Auto) 0.0, Basophils # (Auto) 0.0, Calcium Level 8.9, Total Creatine Kinase 77 Microbiology Microbiology 12/18/17 Blood Culture, Received Pending 12/18/17 Blood Culture, Received Pending Home Medications Scheduled (Calcium + D 500-1000-40 mg-Unt-Mcg) 1 Chw Chw, 1 CHW PO BID (Arnuity Ellipta) 200 Mcg/Act Inh, 1 PUFF INH DAILY (Saline Nasal [place]) 0.65 % Spr, 1 SPRAY NA DAILY Amlodipine Besylate (Amlodipine Besylate) 5 Mg Tab, 5 MG PO DAILY Ascorbic Acid (Vitamin C) 500 Mg Cap, 500 MG PO DAILY Aspirin (Aspirin 81) 81 Mg Tab, 81 MG PO QHS Carvedilol (Carvedilol) 12.5 Mg Tab, 12.5 MG PO BID Cetirizine HCl (Zyrtec Allergy) 10 Mg Tab, 10 MG PO DAILY Cholecalciferol (Vitamin D) 1,000 Unit Tab, 1,000 UNIT PO DAILY Coenzyme Q10 (Co-Enzyme Q-10) 50 Mg Cap, 100 MG PO DAILY Docusate Sodium (Colace) 100 Mg Cap, 100 MG PO QHS Doxycycline Hyclate (Doxycycline Hyclate) 100 Mg Cap, 100 MG PO BID FILLED 12/09 FOR A TEN DAY SUPPLY Guaifenesin (Mucinex) 600 Mg Tab, 600 MG PO Q12H Lisinopril (Lisinopril) 20 Mg Tab, 20 MG PO BID Multivitamins (Centrum Silver Ultra [place]) 1 Tab Tab, 1 TAB PO DAILY Pantoprazole Sodium (Pantoprazole Sodium) 40 Mg Tab, 40 MG PO DAILY Prednisone (Prednisone) 10 Mg Tab, 10 MG PO TAPER 30MG X 1 DAY, THEN 20MG X 5 DAYS, THEN 10MG X 5 DAYS, THEN RESUME 2MG HOME DOSE Simvastatin (Simvastatin) 20 Mg Tab, 20 MG PO QHS Tiotropium [place] Monohydrate (Spiriva Handihaler) 18 Mcg Cap, 1 CAP INH QPM Scheduled PRN Albuterol Sulfate (Albuterol Sulfate) 2.5 Mg/3 Ml Nebu, 2.5 MG INH Q6H PRN for SOB/WHEEZING Albuterol Sulfate (Ventolin Hfa) 108 Mcg/Act Aer, 2 PUFFS INH Q4H PRN for SHORTNESS OF BREATH Albuterol/Ipratropium (Combivent Respimat 20-100 Mcg/Act) 1 Aer Aer, 1 PUFF INH Q6H PRN for SHORTNESS OF BREATH Fluticasone Propionate (Flonase Allergy Relief) 50 Mcg/Act Spr, 2 SPRAYS NA DAILY PRN for NASAL CONGESTION Allergies Coded Allergies: Budesonide (Unverified Adverse Reaction, Unknown, POUNDING HEARTRATE AND DIZZY, 08/12/17) Clarithromycin (Unverified Adverse Reaction, Unknown, SEVERE ABDOMINAL P AIN vomiting, 08/07/17) Formoterol (Unverified Adverse Reaction, Unknown, POUNDING HEART AND DIZ ZINESS, 08/07/17) Sulfa Antibiotics (Unverified Adverse Reaction, Unknown, pt states nose bleeds, 12/22/16) JENNIFER PAYNE DO Dec 18, 2017 17:54
[2017-12-18] MEDS ORDERED: FLUTICASONE PROP 0.05% NASAL SPRAY 16 GM (FLONASE) PRN (18:00)
[2017-12-18] MEDS: methylPREDNISolone INJ 125 MG/2 ML VIAL (J2930) IV SCH (20:10)
[2017-12-18] MEDS: guaiFENesin ER 600 MG TAB PO SCH (20:10)
[2017-12-18] MEDS: LISINOPRIL 20 MG TAB PO SCH (20:10)
[2017-12-18] MEDS: CARVedilol 12.5 MG TAB PO SCH (20:11)
[2017-12-18] MEDS ORDERED: DOCUSATE SODIUM 100 MG CAP PO SCH (21:00)
[2017-12-18] MEDS ORDERED: TIOTROPIUM INHALER/CAPSULE (SPIRIVA) INH SCH (21:00)
[2017-12-18] MEDS ORDERED: ASPIRIN 81 MG ENTERIC TAB PO SCH (21:00)
[2017-12-18] MEDS ORDERED: SIMVASTATIN 20 MG TAB PO SCH (21:00)
[2017-12-18 22:00] VITALS: BP 128/60
[2017-12-19] MEDS: IPRATROPIUM 0.5MG/ALBUTEROL 2.5MG INH SOL UD 3ML (DUONEB)(J7620) NEB SCH ×2 (00:55→08:08)
[2017-12-19] MEDS: LevoFLOXacin 500 MG TABLET PO SCH (05:49)
[2017-12-19 06:00] VITALS: BP 139/63
[2017-12-19 06:42] LABS: HEMATOCRIT 40.5 % (36.0-47.0); HEMOGLOBIN 13.8 g/dl (12.0-15.5); MEAN CORPUSCULAR HEMOGLOBIN 31.8 pg (27.0-33.0); MEAN CORPUSCULAR HGB CONC 34.1 g/dl (32.0-36.5); MEAN CORPUSCULAR VOLUME 93.3 fl (80.0-96.0); PLATELET COUNT, AUTOMATED 203 10^3/uL (150-450); RED BLOOD COUNT 4.34 10^6/uL (4.00-5.40); WHITE BLOOD COUNT 16.1 10^3/uL (4.0-10.0)
[2017-12-19 07:01] LABS: BLOOD UREA NITROGEN 31 MG/DL (7-18); CALCIUM LEVEL 7.9 MG/DL (8.8-10.2); CARBON DIOXIDE LEVEL 27 MEQ/L (21-32); CHLORIDE LEVEL 103 MEQ/L (98-107); GLOMERULAR FILTRATION RATE > 60.0 (>39); GLUCOSE, FASTING 138 MG/DL (70-100); POTASSIUM SERUM 4.2 MEQ/L (3.5-5.1); SODIUM LEVEL 137 MEQ/L (136-145)
[2017-12-19] MEDS ORDERED: PRED10TA2 PO (08:06)
[2017-12-19] MEDS ORDERED: LEVA1TAB2 PO (08:06)
[2017-12-19] MEDS: methylPREDNISolone INJ 125 MG/2 ML VIAL (J2930) IV SCH (08:53)
[2017-12-19 08:54] VITALS: BP 130/60
[2017-12-19] MEDS: CARVedilol 12.5 MG TAB PO SCH (08:54)
[2017-12-19] MEDS: guaiFENesin ER 600 MG TAB PO SCH (08:54)
[2017-12-19] MEDS: LISINOPRIL 20 MG TAB PO SCH (08:55)
[2017-12-19] MEDS: ENOXAPARIN 40 MG/0.4 ML SYRINGE (J1650) SC SCH (08:55)
[2017-12-19] MEDS ORDERED: ASCORBIC ACID 500 MG TAB PO SCH (09:00)
[2017-12-19] MEDS ORDERED: amLODIPine 5 MG TAB PO SCH (09:00)
[2017-12-19] MEDS ORDERED: CETIRIZINE (ZyrTEC) 10 MG TAB PO SCH (09:00)
[2017-12-19] MEDS ORDERED: VITAMIN D 1,000 INTERNATIONAL UNITS TABLET PO SCH (09:00)
[2017-12-19] MEDS ORDERED: CO-ENZYME Q10 50 MG CAP PO SCH (09:00)
[2017-12-19] MEDS ORDERED: PANTOPRAZOLE 40MG TAB (PROTONIX) PO SCH (09:00)
[2017-12-19] MEDS ORDERED: MULTIVITAMINS/MINERALS THERAP 1 TAB PO SCH (09:00)
--- NOTE | 2017-12-19 10:25 | DS.PDOC ---
Discharge Summary General Date of Admission Dec 18, 2017 at 09:15 Date of Discharge Dec 19, 2017 Primary Care Physician: Cassia Izaguirre Attending Physician: JENNIFER PAYNE DO Discharge Summary CONSULTS: None PROCEDURES: None COMPLICATIONS: None ADMISSION / DISCHARGE DIAGNOSIS: 1. Chronic obstructive pulmonary disease (COPD) Exacerbation, not on home oxygen. 2. Hypertension. 3. Hypercholesterolemia. 4. History of diverticulitis. 5. Remote history of premature ventricular contractions (PVCs). BRIEF HOSPITAL COURSE: 77 yo female with history of COPD, having increasing shortness of breath and intermittent productive sputum for about a week. Seen by [facility] this past week and given Rx for doxycycline and prednisone. She feels it hasn't helped. Her sister is also concerned with her increased weakness. She's felt that she's had subjective fevers and chills without rigors. At baseline she says she is not on oxygen supplementation. She was admitted as obs overnight, given DuoNebs, Solumedrol and Levaquin. This morning she is ambulating well with PT and had a brief drop in saturation to 87% that lasted less than a brief second and is maintaining oxygen saturations greater that 90% on RA. She appears somewhat anxious about her oxygen level, but I reassured her that her overall oxygen levels are fine. PHYSICAL EXAMINATION ON DISCHARGE: VITAL SIGNS: Please see below. GENERAL: NAD, A&OX3 HEENT: PERRLA, throat clear, neck supple, no JVD CARDIOVASCULAR EXAMINATION: RRR RESPIRATORY EXAMINATION: CTA bilaterally ABDOMINAL EXAMINATION: soft, NT/ND, normoactive bowel sounds EXTREMITIES: no edema no calf tenderness SKIN: intact NEUROLOGICAL EXAMINATION: CN'S II-XII grossly intact PSYCHIATRIC EXAMINATION: stable DISCHARGE MEDICATIONS: See below DISCHARGE CONDITION: stable DISPOSITION: discharge home DISCHARGE INSTRUCTIONS: Activity: as tolerated Diet: regular Follow up: one week with PCP and 2-3 weeks with [facility]. Seek medical attention should symptoms worsen or progress. Voiced understanding by patient and/or caregiver. TRANSITION OF CARE ISSUES: none DME EQUIPMENT: none TIME SPENT ON DISCHARGE: greater than 35 minutes Please CC: Dr. Zina Sepulveda/Tristen Shell PA-C Vital Signs/I&Os Vital Signs Date Time Temp Pulse Resp B/P (MAP) Pulse Ox O2 Delivery O2 Flow Rate FiO2 12/19/17 08:54 92 130/60 12/19/17 08:07 Nasal Cannula 1.0 12/19/17 08:07 16 12/19/17 06:00 98.2 93 I&O- Last 24 Hours up to 6 AM 12/19/17 05:59 Intake Total 580 ml Output Total 250 ml Balance 330 ml Laboratory Data Labs 24H Laboratory Tests 2 12/19/17 06:15: Nucleated Red Blood Cells % (auto) 0.0, Anion Gap 7L, Glomerular Filtration Rate > 60.0, Blood Urea Nitrogen 31H, Creatinine 0.90, Sodium Level 137, Potassium Level 4.2, Chloride Level 103, Carbon Dioxide Level 27, Calcium Level 7.9L CBC/BMP Laboratory Tests 12/19/17 06:15 Red Blood Count 4.34, Mean Corpuscular Volume 93.3, Mean Corpuscular Hemoglobin 31.8, Mean Corpuscular Hemoglobin Concent 34.1, Red Cell Distribution Width 13.7, Calcium Level 7.9 L Microbiology Microbiology 12/18/17 Blood Culture - Preliminary, Resulted No growth after 24 hours . All specim... 12/18/17 Blood Culture - Preliminary, Resulted No growth after 24 hours . All specim... Discharge Medications Scheduled (Calcium + D 500-1000-40 mg-Unt-Mcg) 1 Chw Chw, 1 CHW PO BID, (Reported) (Arnuity Ellipta) 200 Mcg/Act Inh, 1 PUFF INH DAILY, (Reported) (Saline Nasal [place]) 0.65 % Spr, 1 SPRAY NA DAILY, (Reported) Amlodipine Besylate (Amlodipine Besylate) 5 Mg Tab, 5 MG PO DAILY, (Reported) Ascorbic Acid (Vitamin C) 500 Mg Cap, 500 MG PO DAILY, (Reported) Aspirin (Aspirin 81) 81 Mg Tab, 81 MG PO QHS, (Reported) Carvedilol (Carvedilol) 12.5 Mg Tab, 12.5 MG PO BID, (Reported) Cetirizine HCl (Zyrtec Allergy) 10 Mg Tab, 10 MG PO DAILY, (Reported) Cholecalciferol (Vitamin D) 1,000 Unit Tab, 1,000 UNIT PO DAILY, (Reported) Coenzyme Q10 (Co-Enzyme Q-10) 50 Mg Cap, 100 MG PO DAILY, (Reported) Docusate Sodium (Colace) 100 Mg Cap, 100 MG PO QHS, (Reported) Guaifenesin (Mucinex) 600 Mg Tab, 600 MG PO Q12H, (Reported) Levofloxacin Hemihydrate (Levaquin) 500 Mg Tab, 500 MG PO DAILY Lisinopril (Lisinopril) 20 Mg Tab, 20 MG PO BID, (Reported) Multivitamins (Centrum Silver Ultra [place]) 1 Tab Tab, 1 TAB PO DAILY, (Reported) Pantoprazole Sodium (Pantoprazole Sodium) 40 Mg Tab, 40 MG PO DAILY, (Reported) Prednisone (Prednisone) 10 Mg Tab, 10 MG PO TAPER Take 4 tabs daily x 3 days, then 3 tabs daily x 3 days, then 2 tabs daily x 3 days, then 1 tab daily x 3 days and stop Simvastatin (Simvastatin) 20 Mg Tab, 20 MG PO QHS, (Reported) Tiotropium [place] Monohydrate (Spiriva Handihaler) 18 Mcg Cap, 1 CAP INH QPM, (Reported) Scheduled PRN Albuterol Sulfate (Albuterol Sulfate) 2.5 Mg/3 Ml Nebu, 2.5 MG INH Q6H PRN for SOB/WHEEZING, (Reported) Albuterol Sulfate (Ventolin Hfa) 108 Mcg/Act Aer, 2 PUFFS INH Q4H PRN for SHORTNESS OF BREATH, (Reported) Albuterol/Ipratropium (Combivent Respimat 20-100 Mcg/Act) 1 Aer Aer, 1 PUFF INH Q6H PRN for SHORTNESS OF BREATH, (Reported) Fluticasone Propionate (Flonase Allergy Relief) 50 Mcg/Act Spr, 2 SPRAYS NA DAILY PRN for NASAL CONGESTION, (Reported) Allergies Coded Allergies: Budesonide (Unverified Adverse Reaction, Unknown, POUNDING HEARTRATE AND DIZZY, 08/12/17) Clarithromycin (Unverified Adverse Reaction, Unknown, SEVERE ABDOMINAL PAIN vomiting, 08/07/17) Formoterol (Unverified Adverse Reaction, Unknown, POUNDING HEART AND DIZZINESS, 08/07/17) Sulfa Antibiotics (Unverified Adverse Reaction, Unknown, pt states nose bleeds, 12/22/16) JENNIFER PAYNE DO Dec 19, 2017 10:25
[2017-12-23] MEDS ORDERED: ELIQ5TAB PO (19:40)
== END 2017-12-19 10:42 | disposition home or self-care (01) ==
LOC: M ED 07:12 → M ED INP 09:15 → M MSPAV 10:37
PROVIDERS: ADMIT Hospitalist; ATTEND Hospitalist
DX: J44.1 Chronic obstructive pulmonary disease with (acute) exacerbation (principal); I10 Essential (primary) hypertension; E78.00 Pure hypercholesterolemia, unspecified; Z87.19 Personal history of other diseases of the digestive system; Z86.79 Personal history of other diseases of the circulatory system; Z79.52 Long term (current) use of systemic steroids; Z79.899 Other long term (current) drug therapy; Z79.82 Long term (current) use of aspirin; Z88.2 Allergy status to sulfonamides; Z87.891 Personal history of nicotine dependence
CPT/HCPCS: 36415; 71046; 80048; 82550; 82553; 82803; 83880; 84443; 84484; 85025; 85027; 87040; 93005; 93041; 94640; 96374; 96376; 97161; 97530; 99285; G0378; G8979; G8980; J1650; J2930

== ENCOUNTER 2017-12-23 16:59 | Emergency (ER) | payer MEDICARE ==
[2017-12-23 18:32] LABS: HEMATOCRIT 41.9 % (36.0-47.0); HEMOGLOBIN 14.3 g/dl (12.0-15.5); MEAN CORPUSCULAR HEMOGLOBIN 31.7 pg (27.0-33.0); MEAN CORPUSCULAR HGB CONC 34.1 g/dl (32.0-36.5); MEAN CORPUSCULAR VOLUME 92.9 fl (80.0-96.0); PLATELET COUNT, AUTOMATED 200 10^3/uL (150-450); RED BLOOD COUNT 4.51 10^6/uL (4.00-5.40); RED CELL DISTRIBUTION WIDTH 13.8 % (11.5-14.5); WHITE BLOOD COUNT 16.1 10^3/uL (4.0-10.0)
[2017-12-23 18:36] LABS: INR 1.06; PROTHROMBIN TIME 13.9 SECONDS (12.1-14.4)
[2017-12-23 18:37] LABS: PARTIAL THROMBOPLASTIN TIME 21.1 SECONDS (25.4-37.6)
[2017-12-23 18:39] LABS: ANION GAP 6 MEQ/L (8-16); BLOOD UREA NITROGEN 21 MG/DL (7-18); CARBON DIOXIDE LEVEL 29 MEQ/L (21-32); CHLORIDE LEVEL 100 MEQ/L (98-107); CREATININE FOR GFR 0.95 MG/DL (0.55-1.30); GLOMERULAR FILTRATION RATE > 60.0 (>39); GLUCOSE, FASTING 126 MG/DL (70-100); POTASSIUM SERUM 4.5 MEQ/L (3.5-5.1); SODIUM LEVEL 135 MEQ/L (136-145)
[2017-12-23] MEDS: APIXABAN 5 MG TAB (ELIQUIS) PO (20:14)
== END 2017-12-23 20:35 | disposition home or self-care (01) ==
LOC: M ED 16:59
DX: I26.99 Other pulmonary embolism without acute cor pulmonale (principal); I10 Essential (primary) hypertension; J44.9 Chronic obstructive pulmonary disease, unspecified; E78.5 Hyperlipidemia, unspecified
CPT/HCPCS: Q9967

== ENCOUNTER → 2017-12-23 | Outpatient (REF) | payer MEDICARE ==
[2017-12-23 14:04] LABS: D-DIMER QUANT 1451.8 ng/ml (<500)
== END ==
LOC: M LAB REF 13:08
DX: R09.02 Hypoxemia (principal); I26.99 Other pulmonary embolism without acute cor pulmonale; J43.9 Emphysema, unspecified

== ENCOUNTER → 2017-12-23 | Outpatient (CLI) | payer MEDICARE ==
[~2017-12-23] MED LIST changes: -ALAW0.02; -ALBU17IN INH; -ALBU83IN INH; -AMLO5TAB6 PO; -ARNU1INH3 INH; -ASPI1TAB PO; -CALCCHW19 PO; -CARV12.5 PO; -CARV6.25 PO; -CENTTAB12 PO; -CO-E50CA PO; -COLA100C5 PO; -COMBAER6 INH; -DOXY-350 PO; -DOXY100C PO; -FLON1SPR; -FOSA70TA PO; +ISOVUE-370 76% 100ML VIAL (Q9967) As Ordered; -LEVO500T3 PO; -LISI-538 PO; -MUCI600T37 PO; -OMNASPR2; -PANT40TA3 PO; -PRED10TA2 PO; -PRED1TABL PO; -PRED20TA PO; -QVAR80AE10 INH; -SALI0.6528; -SIMV20TA2 PO; -SPIR1CAP INH; -VITA100066 PO; -VITA500C24 PO; -ZYRT10CA5 PO
== END ==
LOC: M RAD 15:40
DX: I26.99 Other pulmonary embolism without acute cor pulmonale (principal); J43.9 Emphysema, unspecified; R09.02 Hypoxemia

== ENCOUNTER → 2017-12-28 | Outpatient (REF) | payer MEDICARE ==
[2017-12-28 14:50] LABS: HEMATOCRIT 42.6 % (36.0-47.0); HEMOGLOBIN 14.5 g/dl (12.0-15.5); MEAN CORPUSCULAR HEMOGLOBIN 31.8 pg (27.0-33.0); MEAN CORPUSCULAR VOLUME 93.4 fl (80.0-96.0); PLATELET COUNT, AUTOMATED 204 10^3/uL (150-450); RED BLOOD COUNT 4.56 10^6/uL (4.00-5.40); RED CELL DISTRIBUTION WIDTH 14.1 % (11.5-14.5); WHITE BLOOD COUNT 17.1 10^3/uL (4.0-10.0)
== END ==
LOC: M LAB REF 14:32
DX: I26.99 Other pulmonary embolism without acute cor pulmonale (principal)
CPT/HCPCS: 85027

== ENCOUNTER → 2018-11-01 | Outpatient (CLI) | payer MEDICARE ==
[~2018-11-01] MED LIST changes: +ALAW0.02; +ALBU17IN INH; +ALBU83IN INH; +AMLO5TAB6 PO; +ARNU1INH3 INH; +ASPI81TA26 PO; +CALCCHW19 PO; +CARV12.5 PO; +CARV6.25 PO; +CENTTAB12 PO; +CO-E50CA PO; +COLA100C5 PO; +COMBAER6 INH; +DOXY-350 PO; +DOXY100C PO; +ELIQ5TAB PO; +FLON1SPR; +FOSA70TA PO; -ISOVUE-370 76% 100ML VIAL (Q9967) As Ordered; +LEVA1TAB2 PO; +LEVO500T3 PO; +LISI-538 PO; +MUCI600T37 PO; +OMNA50SP; +PANT40TA3 PO; +PRED10TA2 PO; +PRED1TABL PO; +PRED20TA PO; +QVAR80AE10 INH; +SALI0.6528; +SIMV20TA2 PO; +SPIR1CAP INH; +VENTAER INH; +VITA100066 PO; +VITA500C24 PO; +ZYRT10CA5 PO
--- NOTE | 2018-11-02 11:57 | REP ---
BILATERAL SCREENING DIGITAL MAMMOGRAM WITH 3D TOMOSYNTHESIS: There are no palpable abnormalities or other breast complaints. The the patient states she has not had a clinical breast examination in over a year. The the patient states she performs self-breast examinations 12 times per year. The Tyrer-Cuzick Score is: 11.0% . Comparison is 10/05/2013. There are scattered areas of fibroglandular density. There is no dominant mass, micro calcific cluster or architectural distortion that would indicate malignancy. There are no additional findings on 3D tomosynthesiss. There is no change from the prior study. Impression: BIRADS/ACR category 1 mammogram. Negative. Recommendation: Routine annual screening mammography. This mammogram was interpreted with the aid of a FDA approved computer-aided detection system. A. Negative mammogram reports should not delay biopsy if a dominant or clinically suspicious mass is present. B. Not all breast cancers are identified by mammography or tomosynthesis. C. Adenosis and dense breasts may obscure an underlying neoplasm. Patient letter M1. Electronically Signed by Jerome Gilman MD 11/01/2018 10:04 A
== END ==
LOC: M WHC 08:21
PROVIDERS: ATTEND Family Medicine
DX: Z12.31 Encounter for screening mammogram for malignant neoplasm of breast (principal)

== ENCOUNTER 2019-05-23 11:38 | Emergency (ER) | payer MEDICARE ==
[~2019-05-23] VITALS: Ht 154.9 cm; Wt 70.0 kg
[~2019-05-23 11:38] MED LIST changes: -SIMV20TA2 PO; +SIMV20TA22 PO
--- NOTE | 2019-05-23 12:30 | REP ---
CHEST, TWO VIEWS: Two views of the chest are performed. Comparison made with prior study 12/18/2017. There is mild chronic scattered interstitial fibrotic change. No acute infiltrate is seen. There is no pleural effusion or pneumothorax. The heart is normal in size and there is mild calcification of the thoracic aorta. The mediastinal silhouette is unchanged. There are diffuse degenerative changes of the spine. IMPRESSION: Stable chronic findings without acute pulmonary disease. Electronically Signed by Jerome Hurley MD 05/23/2019 06:07 P
[2019-05-23] MEDS ORDERED: COMBIVENT RESPIMAT 100-20MCG INHALER 4GM INH STA (13:08)
[2019-05-23] MEDS ORDERED: ACETAMINOPH W/CODEINE #3 TAB UD PO ONE (13:15)
[2019-05-23] MEDS ORDERED: CEFD1CAP8 (13:17)
[2019-05-23 13:44] LABS: BASO % 0.2 % (0.0-1.0); HEMOGLOBIN 15.3 g/dl (12.0-15.5); LYMPH # 0.8 10^3/uL (1.5-5.0); LYMPH % 5.6 % (24.0-44.0); MEAN CORPUSCULAR HEMOGLOBIN 31.7 pg (27.0-33.0); MEAN CORPUSCULAR HGB CONC 33.3 g/dl (32.0-36.5); MEAN CORPUSCULAR VOLUME 95.2 fl (80.0-96.0); MONO # 0.2 10^3/uL (0.0-0.8); MONO % 1.6 % (0.0-5.0); NEUTROPHILS # 13.5 10^3/uL (1.5-8.5); NEUTROPHILS % 91.6 % (36.0-66.0); PLATELET COUNT, AUTOMATED 249 10^3/uL (150-450); RED BLOOD COUNT 4.83 10^6/uL (4.00-5.40); WHITE BLOOD COUNT 14.7 10^3/uL (4.0-10.0)
[2019-05-23] MEDS: IPRATROPIUM 0.5MG/ALBUTEROL 2.5MG INH SOL UD 3ML (DUONEB)(J7620) NEB PRN ×2 (14:05→14:55)
[2019-05-23 14:12] LABS: BLOOD UREA NITROGEN 19 MG/DL (7-18); CALCIUM LEVEL 9.5 MG/DL (8.8-10.2); CARBON DIOXIDE LEVEL 30 MEQ/L (21-32); CHLORIDE LEVEL 103 MEQ/L (98-107); CK-MB VALUE MASS < 1.0 NG/ML (<3.6); CPK CREATINE PHOSPHOKINASE 61 U/L (26-192); CREATININE FOR GFR 0.92 MG/DL (0.55-1.30); GLOMERULAR FILTRATION RATE > 60.0 (>39); GLUCOSE, FASTING 104 MG/DL (70-100); MB/CK RELATIVE INDEX 1.64 (< OR =4); POTASSIUM SERUM 4.5 MEQ/L (3.5-5.1); SODIUM LEVEL 138 MEQ/L (136-145); TROPONIN I < 0.02 NG/ML (< 0.10)
[2019-05-23] MEDS ORDERED: ISOVUE-370 76% 100ML VIAL (Q9967) As Ordered ONE (14:13)
--- NOTE | 2019-05-23 15:22 | REP ---
CT ANGIOGRAM CHEST: TECHNIQUE: Axial contrast enhanced images from the thoracic inlet to the upper abdomen using 100 mL Isovue 370 intravenous contrast material with multiplanar reformations. COMPARISON: 12/23/2017. There is no CT evidence of pulmonary embolism. There is no thoracic aortic aneurysm or dissection. Heart is not significantly enlarged. There is no pleural or pericardial effusion. There is no mediastinal, hilar, or chest wall lymphadenopathy. There are linear fibroatelectatic changes inferiorly bilaterally. The patient has had a prior cholecystectomy. There are degenerative changes of the spine. Old right rib fractures are seen anterolaterally. No acute fracture is seen. IMPRESSION: No CT evidence of pulmonary embolism. Bibasilar fibroatelectatic changes. No acute fracture seen. There are old healed right rib fractures anterolaterally. Electronically Signed by Jerome Hurley MD 05/23/2019 06:23 P
[2019-05-23] MEDS ORDERED: TYLETAB14 PO (15:59)
[2019-05-23 16:30] VITALS: BP 141/83
--- NOTE | 2019-05-23 17:07 | REP ---
Right shoulder: Three views. History: Right shoulder injury. Comparison right shoulder radiographs are from January 16, 2006. Findings: There is osteoarthritic narrowing and hypertrophy at the AC joint. Glenohumeral articulation is normally aligned. Mild inferior glenoid spurring is seen. There is diffuse osteopenia. No fracture or subluxation is seen. Impression: Diffuse osteopenia and degenerative changes. No fracture or subluxation noted. Electronically Signed by Felice Spears MD 05/24/2019 07:54 A
== END 2019-05-23 16:42 | disposition home or self-care (01) ==
LOC: M ED 11:38
DX: M94.0 Chondrocostal junction syndrome [Tietze] (principal); J44.1 Chronic obstructive pulmonary disease with (acute) exacerbation; S40.011A Contusion of right shoulder, initial encounter; W22.8XXA Striking against or struck by other objects, initial encounter; Y92.89 Other specified places as the place of occurrence of the external cause; I10 Essential (primary) hypertension; E78.5 Hyperlipidemia, unspecified; K21.9 Gastro-esophageal reflux disease without esophagitis; Z79.899 Other long term (current) drug therapy; Z88.1 Allergy status to other antibiotic agents; Z88.2 Allergy status to sulfonamides; Z88.8 Allergy status to other drugs, medicaments and biological substances; Z87.891 Personal history of nicotine dependence
CPT/HCPCS: 36415; 71046; 71275; 73030; 80048; 82550; 82553; 84484; 85025; 94640; 99284; Q9967

== ENCOUNTER 2019-05-30 11:55 | Emergency (ER) | payer MEDICARE ==
[~2019-05-30] VITALS: Ht 152.4 cm; Wt 72.1 kg
[~2019-05-30 11:55] MED LIST changes: +CEFD1CAP8; +TYLETAB14 PO
[2019-05-30] MEDS ORDERED: COMBIVENT RESPIMAT 100-20MCG INHALER 4GM INH ONE (12:45)
[2019-05-30] MEDS ORDERED: methylPREDNISolone INJ 125 MG/2 ML VIAL (J2930) IV ONE (12:45)
[2019-05-30 13:22] LABS: BASO % 0.2 % (0.0-1.0); EOS % 0.2 % (0.0-3.0); HEMATOCRIT 45.3 % (36.0-47.0); LYMPH # 1.1 10^3/uL (1.5-5.0); MEAN CORPUSCULAR HEMOGLOBIN 31.8 pg (27.0-33.0); MEAN CORPUSCULAR HGB CONC 33.1 g/dl (32.0-36.5); MONO # 0.2 10^3/uL (0.0-0.8); MONO % 1.2 % (0.0-5.0); NEUTROPHILS # 16.1 10^3/uL (1.5-8.5); NEUTROPHILS % 90.8 % (36.0-66.0); PLATELET COUNT, AUTOMATED 230 10^3/uL (150-450); RED BLOOD COUNT 4.72 10^6/uL (4.00-5.40); WHITE BLOOD COUNT 17.8 10^3/uL (4.0-10.0)
--- NOTE | 2019-05-30 13:40 | REP ---
Clinical: cough and dyspnea . Comparison: 05/23/2019 . Findings: The mediastinum and cardiac silhouette are stable and within normal limits for portable technique. The lung rubio are clear without acute consolidation, effusion, or pneumothorax. Skeletal structures are intact. Evidence of prior cholecystectomy. Impression: No acute cardiopulmonary process appreciated. Electronically Signed by Stuart Jean MD 05/30/2019 01:31 P
[2019-05-30 13:54] LABS: ALBUMIN 3.5 GM/DL (3.2-5.2); ALT/SGPT 28 U/L (12-78); BILIRUBIN,DIRECT 0.1 MG/DL (0.0-0.2); BILIRUBIN,TOTAL 0.6 MG/DL (0.2-1.0); CK-MB VALUE MASS < 1.0 NG/ML (<3.6); CPK CREATINE PHOSPHOKINASE 91 U/L (26-192); NT-PRO BNP 622 PG/ML (<450); TOTAL PROTEIN 7.4 GM/DL (6.4-8.2); TROPONIN I < 0.02 NG/ML (< 0.10)
[2019-05-30 15:12] VITALS: O2SAT 91
[2019-05-30] MEDS ORDERED: ISOVUE-370 76% 100ML VIAL (Q9967) As Ordered ONE (15:15)
--- NOTE | 2019-05-30 17:52 | REP ---
Clinical: Acute chest pain and shortness of breath. History of PE. Technique: Axial contrast enhanced images from the thoracic inlet to the upper abdomen using 100 ml Isovue 370 intravenous contrast material with coronal and sagittal re-formations. Comparison: 05/23/2019 Findings: Satisfactory enhancement of the pulmonary vasculature is achieved and no filling defects are identified to suggest pulmonary embolus. Lung rubio demonstrate chronic interstitial changes and chronic basilar fibro atelectatic changes (right greater than left). No acute consolidation. No pleural effusion. No pneumothorax. Thoracic aorta, and heart/pericardium are stable. Impression: No evidence for pulmonary embolus. No acute pleuroparenchymal or mediastinal process. Electronically Signed by Stuart Jean MD 05/30/2019 03:58 P
[2019-05-30] MEDS ORDERED: PRED10TA2 PO (18:18)
[2019-05-30 18:40] VITALS: BP 143/70
--- NOTE | 2019-05-31 05:37 | ECGEPIP ---
[facility] - ED Test Date: 2019-05-30 Pat Name: ADONAY PELLETIER Department: Room: - Gender: Female Mine Boss: MELANY : 1940 Requested By: MAUREEN MCKEON PA-C Order Number: [id number] Reading MD: Jonathan Sun Measurements Intervals [place] Rate: 72 P: 74 [place]: 173 QRS: 56 QRSD: 92 T: 33 QT: 358 QTc: 394 Interpretive Statements SINUS RHYTHM NONSPECIFIC ST & T-WAVE ABNORMALITY SIMILAR TO 12/18/17 Electronically Signed on 05-31-2019 5:36:50 EDT by Jonathan Sun
== END 2019-05-30 18:53 | disposition home or self-care (01) ==
LOC: M ED 11:55
DX: J44.1 Chronic obstructive pulmonary disease with (acute) exacerbation (principal); I10 Essential (primary) hypertension; K21.9 Gastro-esophageal reflux disease without esophagitis; Z79.899 Other long term (current) drug therapy; Z88.0 Allergy status to penicillin; Z88.1 Allergy status to other antibiotic agents; Z88.2 Allergy status to sulfonamides; Z88.8 Allergy status to other drugs, medicaments and biological substances; Z87.891 Personal history of nicotine dependence
CPT/HCPCS: 71045; 71275; 80047; 80076; 82550; 82553; 83605; 83880; 84484; 85025; 87040; 87486; 87581; 87633; 87798; 93005; 94760; 96374; 99284; J2930; Q9967; U0002

== ENCOUNTER 2020-10-21 09:37 | Emergency (ER) | payer MEDICARE ==
[~2020-10-21] VITALS: Ht 152.4 cm; Wt 71.9 kg
[2020-10-21 09:37] VITALS: BP 174/76
[~2020-10-21 09:37] MED LIST changes: +AMLO1TAB24 PO; -AMLO5TAB6 PO; -DOXY100C PO; +DOXY100C3 PO; -LISI-538 PO; +LISI20TA33 PO; +PANT40TA29 PO; -PANT40TA3 PO
== END 2020-10-21 11:54 | disposition left against medical advice (07) ==
LOC: M ED 09:37
DX: Z53.29 Procedure and treatment not carried out because of patient's decision for other reasons (principal)

== ENCOUNTER 2020-10-22 10:08 | Emergency (ER) | payer MEDICARE ==
[~2020-10-22] VITALS: Ht 154.9 cm; Wt 71.4 kg
[2020-10-22] MEDS ORDERED: NS 1,000 ML IV ONE (11:30)
[2020-10-22 12:06] LABS: BASO # 0.1 10^3/uL (0.0-0.2); BASO % 0.7 % (0.0-1.0); EOS % 0.2 % (0.0-3.0); HEMATOCRIT 46.1 % (36.0-47.0); HEMOGLOBIN 15.5 g/dl (12.0-15.5); LYMPH # 0.9 10^3/uL (1.5-5.0); LYMPH % 8.5 % (24.0-44.0); MEAN CORPUSCULAR HGB CONC 33.6 g/dl (32.0-36.5); MEAN CORPUSCULAR VOLUME 95.1 fl (80.0-96.0); MONO # 0.6 10^3/uL (0.0-0.8); MONO % 5.7 % (2.0-8.0); NEUTROPHILS # 9.3 10^3/uL (1.5-8.5); PLATELET COUNT, AUTOMATED 251 10^3/uL (150-450); RED BLOOD COUNT 4.85 10^6/uL (4.00-5.40); WHITE BLOOD COUNT 11.1 10^3/uL (4.0-10.0)
[2020-10-22 12:34] LABS: ALBUMIN 3.4 GM/DL (3.2-5.2); ALT/SGPT 23 U/L (12-78); BILIRUBIN,DIRECT 0.1 MG/DL (0.0-0.2); BILIRUBIN,TOTAL 0.4 MG/DL (0.2-1.0); BLOOD UREA NITROGEN 15 MG/DL (7-18); CALCIUM LEVEL 8.6 MG/DL (8.8-10.2); CARBON DIOXIDE LEVEL 26 MEQ/L (21-32); CHLORIDE LEVEL 107 MEQ/L (98-107); GLOMERULAR FILTRATION RATE > 60.0 (>39); GLUCOSE, FASTING 90 MG/DL (70-100); POTASSIUM SERUM 4.2 MEQ/L (3.5-5.1); SODIUM LEVEL 139 MEQ/L (136-145); TOTAL PROTEIN 6.9 GM/DL (6.4-8.2)
[2020-10-22 14:35] VITALS: BP 143/76
== END 2020-10-22 14:49 | disposition home or self-care (01) ==
LOC: M ED 10:08
DX: E86.0 Dehydration (principal); I10 Essential (primary) hypertension; J44.9 Chronic obstructive pulmonary disease, unspecified; J45.909 Unspecified asthma, uncomplicated; E78.00 Pure hypercholesterolemia, unspecified; E55.9 Vitamin D deficiency, unspecified; K21.9 Gastro-esophageal reflux disease without esophagitis; M81.0 Age-related osteoporosis without current pathological fracture; Z87.891 Personal history of nicotine dependence; Z88.0 Allergy status to penicillin; Z88.1 Allergy status to other antibiotic agents; Z88.2 Allergy status to sulfonamides; Z88.8 Allergy status to other drugs, medicaments and biological substances; Z79.899 Other long term (current) drug therapy; Z87.19 Personal history of other diseases of the digestive system

== ENCOUNTER → 2020-11-02 | Outpatient (REF) | payer MEDICARE | LOC: M LAB REF 13:00 | PROVIDERS: ATTEND Internal Medicine Pulmonary Disease | DX: J44.9 Chronic obstructive pulmonary disease, unspecified (principal) ==

== ENCOUNTER → 2021-12-24 | Outpatient (CLI) | payer MEDICARE ==
[~2021-12-24] MED LIST changes: +ALBU2.5V10 INH; -ALBU83IN INH; +ALEN70TA87 PO; -CEFD1CAP8; +CEFD300C41; -FOSA70TA PO; +LEVO1TAB39 PO; -LEVO500T3 PO
== END ==
LOC: M RAD 10:37
PROVIDERS: ATTEND Family Medicine
DX: J44.9 Chronic obstructive pulmonary disease, unspecified (principal)

== ENCOUNTER 2022-07-09 22:13 | Emergency (ER) | payer MEDICARE ==
[~2022-07-09] VITALS: Ht 154.9 cm; Wt 73.5 kg
[~2022-07-09 22:13] MED LIST changes: -DOXY-350 PO; +DOXY-444 PO
[2022-07-09] MEDS ORDERED: BREO1INH3 PO (22:29)
[2022-07-09] MEDS ORDERED: PRED1TABL PO (22:29)
[2022-07-10] MEDS ORDERED: ISOVUE-370 76% 100ML VIAL As Ordered ONE (02:50)
[2022-07-10 05:32] VITALS: BP 132/72
== END 2022-07-10 05:41 | disposition home or self-care (01) ==
LOC: M ED 22:13
DX: S76.212A Strain of adductor muscle, fascia and tendon of left thigh, initial encounter (principal); X58.XXXA Exposure to other specified factors, initial encounter; Y92.89 Other specified places as the place of occurrence of the external cause; Y93.89 Activity, other specified; Y99.8 Other external cause status; I10 Essential (primary) hypertension; E78.5 Hyperlipidemia, unspecified; J44.9 Chronic obstructive pulmonary disease, unspecified; Z86.718 Personal history of other venous thrombosis and embolism; Z87.891 Personal history of nicotine dependence; Z88.2 Allergy status to sulfonamides; Z88.1 Allergy status to other antibiotic agents; Z88.8 Allergy status to other drugs, medicaments and biological substances; Z79.899 Other long term (current) drug therapy; Z79.51 Long term (current) use of inhaled steroids; Z79.52 Long term (current) use of systemic steroids
CPT/HCPCS: 74177; 80047; 99284; Q9967

== ENCOUNTER → 2023-06-30 | Outpatient (CLI) | payer MEDICARE ==
[~2023-06-30] MED LIST changes: +BREO1INH3 PO; +CEFD1CAP9; -CEFD300C41
[2023-06-30 11:56] LABS: HEMATOCRIT 44.9 % (36.0-47.0); HEMOGLOBIN 14.6 g/dl (12.0-15.5); MEAN CORPUSCULAR HEMOGLOBIN 31.4 pg (27.0-33.0); MEAN CORPUSCULAR HGB CONC 32.5 g/dl (32.0-36.5); MEAN CORPUSCULAR VOLUME 96.6 fl (80.0-96.0); PLATELET COUNT, AUTOMATED 325 10^3/uL (150-450); RED BLOOD COUNT 4.65 10^6/uL (4.00-5.40); WHITE BLOOD COUNT 13.9 10^3/uL (4.0-10.0)
[2023-06-30 12:17] LABS: HEMOGLOBIN A1c 5.4 % (4.0-6.0)
[2023-06-30 12:49] LABS: ALBUMIN 3.2 G/DL (3.2-5.2); ALKALINE PHOSPHATASE 61 U/L (46-116); ALT/SGPT 12 U/L (7.0-40); AST/SGOT 23 U/L (<34); BILIRUBIN,TOTAL 0.4 MG/DL (0.3-1.2); BLOOD UREA NITROGEN 16 MG/DL (9-23); CALCIUM LEVEL 9.7 MG/DL (8.3-10.6); CARBON DIOXIDE LEVEL 30 MMOL/L (20-31); CHLORIDE LEVEL 104 MMOL/L (98-107); CHOLESTEROL LEVEL 174 MG/DL (<200); CHOLESTEROL RISK RATIO 3.24 (<5); CREATININE FOR GFR 0.71 MG/DL (0.55-1.30); GLOMERULAR FILTRATION RATE > 60.0 (>32); GLUCOSE, FASTING 99 MG/DL (74-106); HDL CHOLESTEROL 53.7 MG/DL (>40); LDL CHOLESTEROL 91.9 MG/DL (<100); NON-HDL-C 120.3 MG/DL; POTASSIUM SERUM 4.5 MMOL/L (3.5-5.1); SODIUM LEVEL 139 MMOL/L (136-145); THYROID STIMULATING HORMONE 1.472 uIU/ML (0.55-4.78); TOTAL 25(OH) VITAMIN D 62.6 NG/ML (20.0-100.0); TOTAL PROTEIN 6.6 G/DL (5.7-8.2); TRIGLYCERIDES LEVEL 142 MG/DL (<150)
== END ==
LOC: M LAB 10:37
PROVIDERS: ATTEND Family Medicine
DX: I10 Essential (primary) hypertension (principal); R53.83 Other fatigue

== ENCOUNTER 2024-02-08 07:32 | Observation (INO) | payer MEDICARE ==
[~2024-02-08] VITALS: Ht 154.9 cm; Wt 65.7 kg
[~2024-02-08 07:32] MED LIST changes: +BREO1INH3 INH; -BREO1INH3 PO; +DOXY-440 PO; -DOXY-444 PO
[2024-02-08 08:12] LABS: BASO % 0.3 % (0.0-1.0); EOS # 0.1 10^3/uL (0.0-0.5); EOS % 0.5 % (0.0-3.0); HEMATOCRIT 48.3 % (36.0-47.0); HEMOGLOBIN 16.2 g/dl (12.0-15.5); LYMPH # 1.6 10^3/uL (1.5-5.0); LYMPH % 11.9 % (24.0-44.0); MEAN CORPUSCULAR HGB CONC 33.5 g/dl (32.0-36.5); MEAN CORPUSCULAR VOLUME 95.5 fl (80.0-96.0); MONO # 1.1 10^3/uL (0.0-0.8); MONO % 7.9 % (2.0-8.0); NEUTROPHILS # 10.7 10^3/uL (1.5-8.5); NEUTROPHILS % 78.9 % (36.0-66.0); PLATELET COUNT, AUTOMATED 234 10^3/uL (150-450); RED BLOOD COUNT 5.06 10^6/uL (4.00-5.40); WHITE BLOOD COUNT 13.5 10^3/uL (4.0-10.0)
[2024-02-08] MEDS ORDERED: ISOVUE-370 76% 100ML VIAL As Ordered ONE (09:01)
[2024-02-08] MEDS: GASTROGRAFIN SOLUTION 30ML PO SCH (09:31)
[2024-02-08] MEDS ORDERED: BISO10TA13 PO (10:57)
[2024-02-08] MEDS ORDERED: CHLO125TA PO (11:21)
[2024-02-08] MEDS: bisoproloL fumarate 5 MG TAB PO ONE ×2 (12:06→14:11)
[2024-02-08] MEDS: metroNIDAZOLE 500 MG in IV 1 EA IV ONE (13:01)
[2024-02-08] MEDS ORDERED: IPRA0.00 INH (13:40)
[2024-02-08] MEDS ORDERED: MULT1TAB50 PO (13:40)
[2024-02-08] MEDS ORDERED: D-101000 PO (13:40)
[2024-02-08] MEDS ORDERED: CETI-24 PO (13:40)
[2024-02-08] MEDS ORDERED: HOME MED LIST COMPLETE! XX SCH (13:45)
[2024-02-08] MEDS ORDERED: IPRATROPIUM 0.5MG/ALBUTEROL 2.5MG INH SOL UD 3ML (DUONEB) INH PRN (13:50)
[2024-02-08] MEDS ORDERED: MOM 30ML SUSPENSION UDC PO PRN (13:50)
[2024-02-08] MEDS ORDERED: ALBUTEROL 90 MCG/ACT 8GM HFA INHALER INH PRN (13:50)
[2024-02-08] MEDS ORDERED: CETIRIZINE (ZyrTEC) 10 MG TAB PO PRN (13:50)
[2024-02-08] MEDS ORDERED: ACETAMINOPHEN 325 MG TAB PO PRN (13:50)
[2024-02-08] MEDS ORDERED: DOCUSATE SODIUM 100MG CAPSULE PO PRN (13:50)
[2024-02-08] MEDS ORDERED: FLUTICASONE PROP 0.05% NASAL SPRAY 16 GM (FLONASE) PRN (13:50)
[2024-02-08 14:01] LABS: ALBUMIN 3.3 G/DL (3.2-5.2); BILIRUBIN,TOTAL 0.7 MG/DL (0.3-1.2); CALCIUM LEVEL 9.7 MG/DL (8.3-10.6); CREATININE FOR GFR 1.02 MG/DL (0.55-1.30); GLOMERULAR FILTRATION RATE 55.2 (>32); MAGNESIUM LEVEL 1.7 MG/DL (1.8-2.4); POTASSIUM SERUM 3.8 MMOL/L (3.5-5.1); TOTAL PROTEIN 7.3 G/DL (5.7-8.2)
[2024-02-08 14:04] LABS: THYROID STIMULATING HORMONE 2.366 uIU/ML (0.55-4.78)
[2024-02-08] MEDS: CIPROFLOXACIN 400 MG in IV 1 EA IV ONE (14:12)
[2024-02-08] MEDS ORDERED: MORPHINE 2 MG/ML 1ML VIAL IV PRN (14:25)
[2024-02-08] MEDS ORDERED: ONDANSETRON 4MG ORAL DISINTEGRATING TAB PO PRN (14:30)
[2024-02-08] MEDS: CO-ENZYME Q10 50 MG CAP PO SCH (14:37)
[2024-02-08 14:39] LABS: PROCALCITONIN 0.06 ng/ml
[2024-02-08 14:46] LABS: INR 1.03; PROTHROMBIN TIME 13.8 SECONDS (12.5-14.5)
[2024-02-08] MEDS: MAG SULF 1GM/100ML (MAG RUN) 1 GM in IV 1 EA IV SCH (15:40)
[2024-02-08 17:54] LABS: HEMATOCRIT 43.4 % (36.0-47.0); HEMOGLOBIN 14.7 g/dl (12.0-15.5); MEAN CORPUSCULAR HEMOGLOBIN 32.1 pg (27.0-33.0); MEAN CORPUSCULAR HGB CONC 33.9 g/dl (32.0-36.5); MEAN CORPUSCULAR VOLUME 94.8 fl (80.0-96.0); PLATELET COUNT, AUTOMATED 138 10^3/uL (150-450); RED BLOOD COUNT 4.58 10^6/uL (4.00-5.40); WHITE BLOOD COUNT 12.1 10^3/uL (4.0-10.0)
[2024-02-08 17:56] VITALS: BP 128/56; TEMP 98.1; O2SAT 94
[2024-02-08] MEDS: TIOTROPIUM INHALER/CAPSULE (SPIRIVA) INH SCH (19:15)
[2024-02-08] MEDS: ADVAIR HFA 115/21MCG INHALER INH SCH (19:15)
[2024-02-08 19:55] VITALS: BP 117/59; TEMP 96.9; O2SAT 92
[2024-02-08] MEDS: SIMVASTATIN 20 MG TAB PO SCH (21:03)
[2024-02-08] MEDS: metroNIDAZOLE 500 MG in IV 1 EA IV SCH (21:03)
[2024-02-08 23:53] VITALS: BP 133/75; TEMP 97.4; O2SAT 92
[2024-02-09] MEDS: CIPROFLOXACIN 400 MG in IV 1 EA IV SCH (02:29)
[2024-02-09 04:00] VITALS: BP 132/68; TEMP 97.1; O2SAT 93
[2024-02-09 06:26] LABS: HEMATOCRIT 43.1 % (36.0-47.0); HEMOGLOBIN 14.7 g/dl (12.0-15.5); MEAN CORPUSCULAR HEMOGLOBIN 31.5 pg (27.0-33.0); MEAN CORPUSCULAR HGB CONC 34.1 g/dl (32.0-36.5); MEAN CORPUSCULAR VOLUME 92.5 fl (80.0-96.0); RED BLOOD COUNT 4.66 10^6/uL (4.00-5.40); WHITE BLOOD COUNT 10.4 10^3/uL (4.0-10.0)
[2024-02-09 06:29] LABS: PLATELET COUNT, AUTOMATED 249 10^3/uL (150-450)
[2024-02-09 06:54] LABS: BLOOD UREA NITROGEN 15 MG/DL (9-23); CALCIUM LEVEL 8.9 MG/DL (8.3-10.6); CARBON DIOXIDE LEVEL 26 MMOL/L (20-31); CHLORIDE LEVEL 102 MMOL/L (98-107); CREATININE FOR GFR 0.72 MG/DL (0.55-1.30); GLOMERULAR FILTRATION RATE > 60.0 (>32); GLUCOSE, FASTING 95 MG/DL (74-106); MAGNESIUM LEVEL 2.3 MG/DL (1.8-2.4); POTASSIUM SERUM 3.7 MMOL/L (3.5-5.1); SODIUM LEVEL 136 MMOL/L (136-145)
[2024-02-09 08:00] VITALS: BP 136/74; TEMP 97.4; O2SAT 93
[2024-02-09] MEDS ORDERED: bisoproloL fumarate 10 MG TAB PO SCH (09:00)
[2024-02-09] MEDS: ASCORBIC ACID 500 MG TAB PO SCH (10:09)
[2024-02-09] MEDS: amLODIPine 5 MG TAB PO SCH (10:09)
[2024-02-09] MEDS: ACETAMINOPHEN 500 MG TAB PO PRN (10:10)
[2024-02-09] MEDS: APIXABAN 5 MG TAB (ELIQUIS) PO SCH (10:10)
[2024-02-09] MEDS: bisoproloL fumarate 5 MG TAB PO SCH (10:11)
[2024-02-09] MEDS: PANTOPRAZOLE 40MG TAB (PROTONIX) PO SCH (10:11)
[2024-02-09] MEDS: CHLORTHALIDONE 12.5MG PER 1/2 TABLET PO SCH (11:16)
[2024-02-09] MEDS: predniSONE 1 MG TAB PO SCH (11:16)
[2024-02-09] MEDS ORDERED: ELIQ5TAB PO (11:21)
[2024-02-09 11:49] VITALS: BP 136/70; TEMP 97.4; O2SAT 94
[2024-02-09 20:01] VITALS: BP 108/60; TEMP 98.8; O2SAT 94
[2024-02-09 23:00] VITALS: BP 130/52; TEMP 97.5; O2SAT 95
[2024-02-10 03:19] VITALS: BP 122/62; TEMP 97.7; O2SAT 93
[2024-02-10 06:08] LABS: BASO % 0.4 % (0.0-1.0); EOS # 0.1 10^3/uL (0.0-0.5); EOS % 0.8 % (0.0-3.0); HEMATOCRIT 39.9 % (36.0-47.0); HEMOGLOBIN 13.7 g/dl (12.0-15.5); LYMPH # 1.5 10^3/uL (1.5-5.0); LYMPH % 14.9 % (24.0-44.0); MEAN CORPUSCULAR HEMOGLOBIN 31.9 pg (27.0-33.0); MEAN CORPUSCULAR HGB CONC 34.3 g/dl (32.0-36.5); MEAN CORPUSCULAR VOLUME 92.8 fl (80.0-96.0); MONO % 10.2 % (2.0-8.0); NEUTROPHILS # 7.1 10^3/uL (1.5-8.5); PLATELET COUNT, AUTOMATED 171 10^3/uL (150-450); WHITE BLOOD COUNT 9.7 10^3/uL (4.0-10.0)
[2024-02-10 06:40] LABS: BLOOD UREA NITROGEN 17 MG/DL (9-23); CALCIUM LEVEL 8.6 MG/DL (8.3-10.6); CARBON DIOXIDE LEVEL 28 MMOL/L (20-31); CHLORIDE LEVEL 101 MMOL/L (98-107); CREATININE FOR GFR 0.81 MG/DL (0.55-1.30); GLOMERULAR FILTRATION RATE > 60.0 (>32); GLUCOSE, FASTING 103 MG/DL (74-106); POTASSIUM SERUM 3.4 MMOL/L (3.5-5.1); SODIUM LEVEL 135 MMOL/L (136-145)
[2024-02-10] MEDS: POTASSIUM CHLORIDE 10MEQ SR TABLET PO ONE (08:12)
[2024-02-10 08:17] VITALS: BP 137/66
[2024-02-10] MEDS ORDERED: CIPR-249 PO (10:46)
[2024-02-10] MEDS ORDERED: BISO10TA13 PO (10:46)
[2024-02-10] MEDS ORDERED: METR-265 PO (10:46)
[2024-02-10] MEDS ORDERED: PROB250C PO (10:46)
== END 2024-02-10 11:28 | disposition home or self-care (01) ==
LOC: M ED 07:32 → M ED INP 13:50 → M PCU 17:45 → M MSPAV 02-09 22:59
PROVIDERS: ADMIT Student in an Organized Health Care Education/Training Program; ATTEND Internal Medicine
DX: K57.32 Diverticulitis of large intestine without perforation or abscess without bleeding (principal); K57.90 Diverticulosis of intestine, part unspecified, without perforation or abscess without bleeding; K92.1 Melena; I48.91 Unspecified atrial fibrillation; E87.1 Hypo-osmolality and hyponatremia; R94.31 Abnormal electrocardiogram [ECG] [EKG]; R10.32 Left lower quadrant pain; J44.9 Chronic obstructive pulmonary disease, unspecified; I10 Essential (primary) hypertension; K21.9 Gastro-esophageal reflux disease without esophagitis; E78.5 Hyperlipidemia, unspecified; H25.9 Unspecified age-related cataract; J30.89 Other allergic rhinitis; E55.9 Vitamin D deficiency, unspecified; Z86.711 Personal history of pulmonary embolism; Z90.49 Acquired absence of other specified parts of digestive tract; Z98.890 Other specified postprocedural states; Z87.891 Personal history of nicotine dependence; Z88.0 Allergy status to penicillin; Z88.2 Allergy status to sulfonamides; Z88.1 Allergy status to other antibiotic agents; Z88.8 Allergy status to other drugs, medicaments and biological substances; Z79.899 Other long term (current) drug therapy; Z79.51 Long term (current) use of inhaled steroids; Z79.52 Long term (current) use of systemic steroids; Z66 Do not resuscitate
CPT/HCPCS: 36415; 74177; 80047; 80048; 80053; 83735; 84145; 84443; 85025; 85027; 85610; 85730; 93005; 93306; 94640; 96365; 96366; 96367; 96376; 97161; 99285; G0378; J0744; J1836; J3475; J7512; Q9963; Q9967

== ENCOUNTER → 2024-03-03 | Outpatient (CLI) | payer MEDICARE ==
[~2024-03-03] MED LIST changes: +BISO10TA13 PO; +CETI-24 PO; +CHLO125TA PO; +CIPR-249 PO; +D-101000 PO; +IPRA0.00 INH; +METR-265 PO; +MULT1TAB50 PO; +PROB250C PO
[2024-03-03 07:54] LABS: HEMATOCRIT 44.9 % (36.0-47.0); HEMOGLOBIN 14.2 g/dl (12.0-15.5); MEAN CORPUSCULAR HEMOGLOBIN 31.4 pg (27.0-33.0); MEAN CORPUSCULAR HGB CONC 31.6 g/dl (32.0-36.5); MEAN CORPUSCULAR VOLUME 99.3 fl (80.0-96.0); PLATELET COUNT, AUTOMATED 170 10^3/uL (150-450); RED BLOOD COUNT 4.52 10^6/uL (4.00-5.40); WHITE BLOOD COUNT 7.4 10^3/uL (4.0-10.0)
[2024-03-03 08:22] LABS: BLOOD UREA NITROGEN 21 MG/DL (9-23); CALCIUM LEVEL 9.6 MG/DL (8.3-10.6); CARBON DIOXIDE LEVEL 32 MMOL/L (20-31); CHLORIDE LEVEL 106 MMOL/L (98-107); CREATININE FOR GFR 0.88 MG/DL (0.55-1.30); GLOMERULAR FILTRATION RATE > 60.0 (>32); GLUCOSE, FASTING 94 MG/DL (74-106); MAGNESIUM LEVEL 1.8 MG/DL (1.8-2.4); POTASSIUM SERUM 4.3 MMOL/L (3.5-5.1); SODIUM LEVEL 144 MMOL/L (136-145)
== END ==
LOC: M LAB 07:25
PROVIDERS: ATTEND Physician Assistant
DX: I48.0 Paroxysmal atrial fibrillation (principal)

== ENCOUNTER → 2024-03-07 | Outpatient (CLI) | payer MEDICARE | LOC: M LAB 14:21 | PROVIDERS: ATTEND Physician Assistant | DX: I50.32 Chronic diastolic (congestive) heart failure (principal) ==

== ENCOUNTER → 2024-04-14 | Outpatient (CLI) | payer MEDICARE ==
[2024-04-14 10:06] LABS: BLOOD UREA NITROGEN 22 MG/DL (9-23); CALCIUM LEVEL 9.6 MG/DL (8.3-10.6); CARBON DIOXIDE LEVEL 30 MMOL/L (20-31); CHLORIDE LEVEL 102 MMOL/L (98-107); CREATININE FOR GFR 0.78 MG/DL (0.55-1.30); GLOMERULAR FILTRATION RATE > 60.0 (>32); GLUCOSE, FASTING 104 MG/DL (74-106); POTASSIUM SERUM 3.6 MMOL/L (3.5-5.1); SODIUM LEVEL 141 MMOL/L (136-145)
== END ==
LOC: M LAB 08:42
PROVIDERS: ATTEND Internal Medicine Cardiovascular Disease
DX: I50.32 Chronic diastolic (congestive) heart failure (principal)

== ENCOUNTER 2024-04-26 10:04 | Emergency (ER) | payer MEDICARE ==
[~2024-04-26] VITALS: Ht 152.4 cm; Wt 62.1 kg
[2024-04-26 12:53] LABS: BASO % 0.5 % (0.0-1.0); EOS % 0.5 % (0.0-3.0); HEMATOCRIT 50.3 % (36.0-47.0); HEMOGLOBIN 16.9 g/dl (12.0-15.5); LYMPH # 1.2 10^3/uL (1.5-5.0); LYMPH % 14.1 % (24.0-44.0); MEAN CORPUSCULAR HEMOGLOBIN 31.7 pg (27.0-33.0); MEAN CORPUSCULAR HGB CONC 33.6 g/dl (32.0-36.5); MEAN CORPUSCULAR VOLUME 94.4 fl (80.0-96.0); MONO # 0.7 10^3/uL (0.0-0.8); MONO % 8.6 % (2.0-8.0); NEUTROPHILS # 6.4 10^3/uL (1.5-8.5); NEUTROPHILS % 75.7 % (36.0-66.0); PLATELET COUNT, AUTOMATED 264 10^3/uL (150-450); RED BLOOD COUNT 5.33 10^6/uL (4.00-5.40); WHITE BLOOD COUNT 8.4 10^3/uL (4.0-10.0)
[2024-04-26 13:11] LABS: LIPASE 43 U/L (12-53)
[2024-04-26 13:13] LABS: ALBUMIN 3.4 G/DL (3.2-5.2); ALKALINE PHOSPHATASE 52 U/L (35-104); ALT/SGPT 17 U/L (7.0-40); AST/SGOT 24 U/L (<34); BILIRUBIN,DIRECT 0.2 MG/DL (<0.4); BILIRUBIN,TOTAL 0.6 MG/DL (0.3-1.2); BLOOD UREA NITROGEN 24 MG/DL (9-23); CALCIUM LEVEL 9.8 MG/DL (8.3-10.6); CARBON DIOXIDE LEVEL 31 MMOL/L (20-31); CHLORIDE LEVEL 97 MMOL/L (98-107); CREATININE FOR GFR 0.86 MG/DL (0.55-1.30); GLOMERULAR FILTRATION RATE > 60.0 (>32); GLUCOSE, FASTING 95 MG/DL (74-106); POTASSIUM SERUM 4.3 MMOL/L (3.5-5.1); SODIUM LEVEL 134 MMOL/L (136-145); TOTAL PROTEIN 7.4 G/DL (5.7-8.2)
[2024-04-26] MEDS ORDERED: ISOVUE-370 76% 100ML VIAL As Ordered ONE (14:32)
[2024-04-26] MEDS ORDERED: SIME80CH6 PO (16:03)
[2024-04-26] MEDS: ONDANSETRON 4MG 2ML VIAL IV ONE (16:06)
[2024-04-26] MEDS: ACETAMINOPHEN *IV* 1,000 MG in IV 1 EA IV ONE (16:06)
[2024-04-26] MEDS: SIMETHICONE 80MG CHEW TAB PO ONE (16:07)
[2024-04-26 16:35] VITALS: BP 167/71; TEMP 97.6; O2SAT 92
== END 2024-04-26 16:45 | disposition home or self-care (01) ==
LOC: M ED 10:04
DX: R10.9 Unspecified abdominal pain (principal); I48.91 Unspecified atrial fibrillation; I25.2 Old myocardial infarction; I10 Essential (primary) hypertension; Z88.2 Allergy status to sulfonamides; Z88.1 Allergy status to other antibiotic agents; Z88.8 Allergy status to other drugs, medicaments and biological substances; Z79.51 Long term (current) use of inhaled steroids; Z79.01 Long term (current) use of anticoagulants; Z79.52 Long term (current) use of systemic steroids; Z79.810 Long term (current) use of selective estrogen receptor modulators (SERMs); Z79.899 Other long term (current) drug therapy
CPT/HCPCS: 74177; 80048; 80076; 83690; 85025; 93005; 96374; 96375; 99284; J0131; J2405; Q9967

== ENCOUNTER 2024-05-19 13:09 | Inpatient (IN) | payer MEDICARE ==
[~2024-05-19] VITALS: Ht 154.9 cm; Wt 54.4 kg
[~2024-05-19 13:09] MED LIST changes: +SIME80CH6 PO
[2024-05-19 14:03] LABS: BASO # 0.1 10^3/uL (0.0-0.2); BASO % 0.5 % (0.0-1.0); EOS % 0.2 % (0.0-3.0); HEMATOCRIT 57.2 % (36.0-47.0); HEMOGLOBIN 18.4 g/dl (12.0-15.5); LYMPH # 1.3 10^3/uL (1.5-5.0); LYMPH % 10.4 % (24.0-44.0); MEAN CORPUSCULAR HGB CONC 32.2 g/dl (32.0-36.5); MEAN CORPUSCULAR VOLUME 96.5 fl (80.0-96.0); MONO # 0.8 10^3/uL (0.0-0.8); MONO % 6.6 % (2.0-8.0); NEUTROPHILS # 9.8 10^3/uL (1.5-8.5); NEUTROPHILS % 81.1 % (36.0-66.0); PLATELET COUNT, AUTOMATED 234 10^3/uL (150-450); RED BLOOD COUNT 5.93 10^6/uL (4.00-5.40); WHITE BLOOD COUNT 12.1 10^3/uL (4.0-10.0)
[2024-05-19 14:18] LABS: INR 1.87; PARTIAL THROMBOPLASTIN TIME 31.7 SECONDS (24.8-34.2); PROTHROMBIN TIME 21.7 SECONDS (12.5-14.5)
[2024-05-19 14:23] LABS: VENOUS BASE EXCESS -3.7 (-2.0-2.0); VENOUS HCO3 25.3 MMOL/L (23.0-27.0); VENOUS PARTIAL PRESSURE CO2 60.9 mmHg (38.0-50.0); VENOUS PARTIAL PRESSURE O2 28.7 mmHg (30.0-50.0); VENOUS PH 7.237 UNITS (7.330-7.430); VENOUS STANDARD HCO3 20.1 MMOL/L; VENOUS TOTAL CO2 27.2 MMOL/L (24.0-28.0)
[2024-05-19] MEDS: methylPREDNISolone 125MG 2ML VIAL IV ONE (14:59)
[2024-05-19 15:39] LABS: CK-MB VALUE MASS 1.5 NG/ML (<3.6)
[2024-05-19 15:43] LABS: FREE T4 1.69 NG/DL (0.89-1.76); THYROID STIMULATING HORMONE 2.052 uIU/ML (0.55-4.78)
[2024-05-19 15:51] LABS: ALBUMIN 2.9 G/DL (3.2-5.2); BILIRUBIN,DIRECT 0.3 MG/DL (<0.4); BILIRUBIN,TOTAL 0.7 MG/DL (0.3-1.2); CALCIUM LEVEL 9.2 MG/DL (8.3-10.6); CREATININE FOR GFR 1.87 MG/DL (0.55-1.30); GLOMERULAR FILTRATION RATE 27.4 (>32); POTASSIUM SERUM 4.9 MMOL/L (3.5-5.1); TOTAL PROTEIN 6.9 G/DL (5.7-8.2)
[2024-05-19] MEDS: IPRATROPIUM 0.5MG/ALBUTEROL 2.5MG INH SOL UD 3ML (DUONEB) NEB PRN (16:45)
[2024-05-19 16:55] LABS: CK-MB VALUE MASS 1.5 NG/ML (<3.6)
[2024-05-19 16:57] LABS: MB/CK RELATIVE INDEX 3.4 (< OR =4)
[2024-05-19 16:59] LABS: ABG BASE EXCESS -3.6 (-2.0-2.0); ABG HCO3 22.3 MMOL/L (22.0-26.0); ABG O2 SATURATION 87.8 % (95.0-99.0); ABG PARTIAL PRESSURE CO2 43.2 mmHg (35.0-45.0); ABG STANDARD HCO3 21.2 MMOL/L. (22.0-26.0); ABG TOTAL CO2 23.6 MMOL/L (23.0-31.0)
[2024-05-19] MEDS ORDERED: BISO10TA13 PO (17:23)
[2024-05-19] MEDS ORDERED: ELIQ5TAB PO (17:23)
[2024-05-19] MEDS ORDERED: SPIR-10 PO (17:28)
[2024-05-19] MEDS ORDERED: CHLO125TA PO (17:28)
[2024-05-19] MEDS ORDERED: DOXY-441 PO (17:28)
[2024-05-19] MEDS ORDERED: DIGO0.123 PO (17:29)
[2024-05-19] MEDS ORDERED: HOME MED LIST COMPLETE! XX SCH (17:30)
[2024-05-19] MEDS ORDERED: PILL CUTTER 1 EACH XX ONE (19:15)
[2024-05-19] MEDS: traMADol 50 MG TAB PO PRN (19:17)
[2024-05-19] MEDS: ACETAMINOPHEN 500 MG TAB PO ONE (19:18)
[2024-05-19] MEDS: NS (Normal Saline) 0.9% 1,000 ML IV SCH ×2 (19:18→22:18)
[2024-05-19 19:27] LABS: DIGOXIN LEVEL 2.5 NG/ML (0.8-2.0)
[2024-05-19] MEDS: FORMOTEROL FUMARATE 20 MCG/2 ML INHALATION SOLUTION (PERFOROMIST) INH SCH (20:38)
[2024-05-19] MEDS: BUDESONIDE 0.5 MG/2 ML INHALATION SUSPENSION NEB SCH (20:38)
[2024-05-19] MEDS: LEVALBUTEROL 1.25MG 0.5ML CONCENTRATE NEB NEB SCH (20:38)
[2024-05-19] MEDS ORDERED: PILL CUTTER 1 EACH XX PRN (21:20)
[2024-05-19 21:30] VITALS: BP 116/53; TEMP 97.5; O2SAT 97
[2024-05-19] MEDS: DOCUSATE SODIUM 100MG CAPSULE PO SCH (22:15)
[2024-05-19] MEDS: guaiFENesin ER TABLET 600 MG TAB PO SCH (22:16)
[2024-05-19] MEDS: SIMVASTATIN 20 MG TAB PO SCH (22:16)
[2024-05-19] MEDS: cefTRIAXone SOD 1 GM in DEXTROSE 5% (D5W) ADV/MINI-BAG 50 ML IV SCH (22:16)
[2024-05-19] MEDS: PANTOPRAZOLE 40MG TAB (PROTONIX) PO SCH (22:16)
[2024-05-19] MEDS: DOXYCYCLINE HYCLATE 100MG TABLET PO SCH (22:16)
[2024-05-19] MEDS: bisoproloL fumarate 10 MG TAB PO SCH (22:17)
[2024-05-20 03:20] VITALS: BP 127/67; TEMP 97.2; O2SAT 93
[2024-05-20 06:06] LABS: BASO % 0.2 % (0.0-1.0); HEMATOCRIT 50.2 % (36.0-47.0); HEMOGLOBIN 16.6 g/dl (12.0-15.5); LYMPH # 0.7 10^3/uL (1.5-5.0); LYMPH % 5.4 % (24.0-44.0); MEAN CORPUSCULAR HEMOGLOBIN 31.1 pg (27.0-33.0); MEAN CORPUSCULAR HGB CONC 33.1 g/dl (32.0-36.5); MEAN CORPUSCULAR VOLUME 94.2 fl (80.0-96.0); MONO # 0.1 10^3/uL (0.0-0.8); NEUTROPHILS # 12.3 10^3/uL (1.5-8.5); NEUTROPHILS % 92.6 % (36.0-66.0); PLATELET COUNT, AUTOMATED 182 10^3/uL (150-450); RED BLOOD COUNT 5.33 10^6/uL (4.00-5.40); WHITE BLOOD COUNT 13.2 10^3/uL (4.0-10.0)
[2024-05-20 06:29] LABS: CALCIUM LEVEL 8.8 MG/DL (8.3-10.6); CREATININE FOR GFR 2.29 MG/DL (0.55-1.30); GLOMERULAR FILTRATION RATE 21.7 (>32); POTASSIUM SERUM 4.3 MMOL/L (3.5-5.1)
[2024-05-20] MEDS: TIOTROPIUM INHALER/CAPSULE (SPIRIVA) INH SCH (07:16)
[2024-05-20] MEDS ORDERED: DIGOXIN 0.125 MG TAB PO SCH (09:00)
[2024-05-20 11:06] LABS: PROCALCITONIN 0.14 ng/ml
[2024-05-20 12:04] VITALS: BP 110/66; TEMP 97.2; O2SAT 94
[2024-05-20] MEDS: NS 500 ML IV ONE (12:30)
[2024-05-20] MEDS: ONDANSETRON 4MG 2ML VIAL IV PRN (12:30)
[2024-05-20] MEDS: guaiFENesin SYRUP 200MG 10ML UDC PO SCH (12:30)
[2024-05-20] MEDS: CEPACOL LOZENGE PO PRN (12:30)
[2024-05-20 13:48] VITALS: BP 130/60
[2024-05-20] MEDS: ACETAMINOPHEN 325 MG TAB PO PRN (18:33)
[2024-05-20] MEDS: NYSTATIN 500,000U/5ML SUSP UDC SS SCH (18:47)
[2024-05-20] MEDS: ACETAMINOPHEN 325MG/10.15ML UDC PO ONE (19:00)
[2024-05-20 19:54] VITALS: BP 118/56; TEMP 97.7; O2SAT 92
[2024-05-20] MEDS: CHLORASEPTIC SPRAY MT SCH (20:38)
[2024-05-20] MEDS: bisoproloL fumarate 5 MG TAB PO SCH (20:57)
[2024-05-21 03:53] VITALS: BP 131/64; TEMP 97.2; O2SAT 96
[2024-05-21 05:59] LABS: BASO % 0.1 % (0.0-1.0); HEMATOCRIT 46.5 % (36.0-47.0); HEMOGLOBIN 15.3 g/dl (12.0-15.5); LYMPH # 0.8 10^3/uL (1.5-5.0); LYMPH % 3.5 % (24.0-44.0); MEAN CORPUSCULAR HEMOGLOBIN 31.3 pg (27.0-33.0); MEAN CORPUSCULAR HGB CONC 32.9 g/dl (32.0-36.5); MEAN CORPUSCULAR VOLUME 95.1 fl (80.0-96.0); MONO # 1.2 10^3/uL (0.0-0.8); MONO % 5.3 % (2.0-8.0); NEUTROPHILS # 21.3 10^3/uL (1.5-8.5); NEUTROPHILS % 90.5 % (36.0-66.0); PLATELET COUNT, AUTOMATED 189 10^3/uL (150-450); RED BLOOD COUNT 4.89 10^6/uL (4.00-5.40); WHITE BLOOD COUNT 23.5 10^3/uL (4.0-10.0)
[2024-05-21 06:17] LABS: CALCIUM LEVEL 7.8 MG/DL (8.3-10.6); CREATININE FOR GFR 2.34 MG/DL (0.55-1.30); GLOMERULAR FILTRATION RATE 21.2 (>32)
[2024-05-21 08:48] VITALS: BP 145/50; TEMP 97.7; O2SAT 97
[2024-05-21 10:00] VITALS: O2SAT 83
[2024-05-21 10:55] VITALS: O2SAT 93
[2024-05-21 12:00] VITALS: BP 130/50; TEMP 97; O2SAT 98
[2024-05-21] MEDS: NS 0.45% 1,000 ML IV SCH (13:14)
[2024-05-21 19:56] VITALS: BP 122/70; TEMP 98.1; O2SAT 92
[2024-05-22 04:57] VITALS: BP 127/70; TEMP 97.2; O2SAT 95
[2024-05-22 06:23] LABS: BASO % 0.1 % (0.0-1.0); HEMATOCRIT 46.6 % (36.0-47.0); HEMOGLOBIN 15.1 g/dl (12.0-15.5); LYMPH # 0.7 10^3/uL (1.5-5.0); LYMPH % 3.9 % (24.0-44.0); MEAN CORPUSCULAR HEMOGLOBIN 30.4 pg (27.0-33.0); MEAN CORPUSCULAR HGB CONC 32.4 g/dl (32.0-36.5); MEAN CORPUSCULAR VOLUME 93.8 fl (80.0-96.0); MONO # 0.9 10^3/uL (0.0-0.8); MONO % 5.1 % (2.0-8.0); NEUTROPHILS % 90.2 % (36.0-66.0); PLATELET COUNT, AUTOMATED 189 10^3/uL (150-450); RED BLOOD COUNT 4.97 10^6/uL (4.00-5.40); WHITE BLOOD COUNT 16.7 10^3/uL (4.0-10.0)
[2024-05-22 06:57] LABS: CALCIUM LEVEL 7.7 MG/DL (8.3-10.6); CREATININE FOR GFR 1.57 MG/DL (0.55-1.30); GLOMERULAR FILTRATION RATE 33.6 (>32); POTASSIUM SERUM 3.8 MMOL/L (3.5-5.1)
[2024-05-22] MEDS: DIGOXIN 0.0625MG PER 1/2TABLET PO SCH (10:25)
[2024-05-22] MEDS: LIDOCAINE 5% (LIDODERM) PATCH TD SCH (10:42)
[2024-05-22 12:00] VITALS: BP 115/67; TEMP 97.3; O2SAT 94
[2024-05-22 20:00] VITALS: BP 146/85; TEMP 97.3; O2SAT 94
[2024-05-23 03:00] VITALS: BP 143/82; TEMP 97.2; O2SAT 93
[2024-05-23 05:44] LABS: BASO % 0.1 % (0.0-1.0); HEMATOCRIT 42.5 % (36.0-47.0); HEMOGLOBIN 14.1 g/dl (12.0-15.5); LYMPH # 0.6 10^3/uL (1.5-5.0); LYMPH % 5.4 % (24.0-44.0); MEAN CORPUSCULAR HEMOGLOBIN 30.9 pg (27.0-33.0); MEAN CORPUSCULAR HGB CONC 33.2 g/dl (32.0-36.5); MEAN CORPUSCULAR VOLUME 93.2 fl (80.0-96.0); MONO # 0.9 10^3/uL (0.0-0.8); MONO % 8.3 % (2.0-8.0); NEUTROPHILS % 85.6 % (36.0-66.0); PLATELET COUNT, AUTOMATED 152 10^3/uL (150-450); RED BLOOD COUNT 4.56 10^6/uL (4.00-5.40); WHITE BLOOD COUNT 10.5 10^3/uL (4.0-10.0)
[2024-05-23 05:53] LABS: CALCIUM LEVEL 7.7 MG/DL (8.3-10.6); CREATININE FOR GFR 1.18 MG/DL (0.55-1.30); GLOMERULAR FILTRATION RATE 46.7 (>32); POTASSIUM SERUM 3.9 MMOL/L (3.5-5.1)
[2024-05-23 11:38] VITALS: BP 141/80; TEMP 97.2; O2SAT 95
[2024-05-23] MEDS: LEVALBUTEROL 1.25MG 0.5ML CONCENTRATE NEB NEB SCH (15:38)
[2024-05-23 21:00] VITALS: BP 132/90; TEMP 97.2; O2SAT 93
[2024-05-23] MEDS: bisoproloL fumarate 5 MG TAB PO SCH (21:39)
[2024-05-24 03:40] VITALS: BP 152/76; TEMP 97; O2SAT 94
[2024-05-24 05:23] LABS: BASO % 0.1 % (0.0-1.0); HEMATOCRIT 42.3 % (36.0-47.0); HEMOGLOBIN 14.4 g/dl (12.0-15.5); LYMPH # 0.8 10^3/uL (1.5-5.0); LYMPH % 8.9 % (24.0-44.0); MEAN CORPUSCULAR HEMOGLOBIN 31.4 pg (27.0-33.0); MEAN CORPUSCULAR VOLUME 92.4 fl (80.0-96.0); MONO % 10.1 % (2.0-8.0); NEUTROPHILS # 7.6 10^3/uL (1.5-8.5); NEUTROPHILS % 80.2 % (36.0-66.0); PLATELET COUNT, AUTOMATED 130 10^3/uL (150-450); RED BLOOD COUNT 4.58 10^6/uL (4.00-5.40); WHITE BLOOD COUNT 9.4 10^3/uL (4.0-10.0)
[2024-05-24 05:44] LABS: CALCIUM LEVEL 8.3 MG/DL (8.3-10.6); CREATININE FOR GFR 1.04 MG/DL (0.55-1.30); POTASSIUM SERUM 4.1 MMOL/L (3.5-5.1)
[2024-05-24] MEDS: D5W/0.45% SODIUM CHLORIDE 1,000 ML IV SCH (09:18)
[2024-05-24 12:36] VITALS: BP 146/70; TEMP 97; O2SAT 94
[2024-05-24] MEDS ORDERED: CETIRIZINE (ZyrTEC) 10 MG TAB PO PRN (16:35)
[2024-05-24] MEDS: GLYCOPYRROLATE INJ 0.2 MG/ML 2 ML VIAL NEB SCH (19:35)
[2024-05-24 20:00] VITALS: BP 122/70; TEMP 97; O2SAT 94
[2024-05-24] MEDS: HEPARIN SOD (PORCINE) 5000UNITS/ML 1ML VIAL/SYRINGE SQ SCH (21:01)
[2024-05-25 04:00] VITALS: BP 166/78; TEMP 97.2; O2SAT 94
[2024-05-25 05:07] LABS: BASO % 0.1 % (0.0-1.0); HEMATOCRIT 43.7 % (36.0-47.0); HEMOGLOBIN 14.9 g/dl (12.0-15.5); LYMPH # 0.8 10^3/uL (1.5-5.0); LYMPH % 9.3 % (24.0-44.0); MEAN CORPUSCULAR HEMOGLOBIN 31.2 pg (27.0-33.0); MEAN CORPUSCULAR HGB CONC 34.1 g/dl (32.0-36.5); MEAN CORPUSCULAR VOLUME 91.6 fl (80.0-96.0); MONO # 0.9 10^3/uL (0.0-0.8); MONO % 9.8 % (2.0-8.0); NEUTROPHILS % 79.5 % (36.0-66.0); PLATELET COUNT, AUTOMATED 147 10^3/uL (150-450); RED BLOOD COUNT 4.77 10^6/uL (4.00-5.40); WHITE BLOOD COUNT 8.8 10^3/uL (4.0-10.0)
[2024-05-25 05:27] LABS: CALCIUM LEVEL 8.4 MG/DL (8.3-10.6); CREATININE FOR GFR 0.98 MG/DL (0.55-1.30); GLOMERULAR FILTRATION RATE 57.8 (>32); POTASSIUM SERUM 4.1 MMOL/L (3.5-5.1)
[2024-05-25] MEDS: ACETAMINOPHEN 500 MG TAB PO SCH (08:41)
[2024-05-25] MEDS: D5W 1,000 ML IV SCH (08:43)
[2024-05-25 12:00] VITALS: BP 119/75; TEMP 97.7; O2SAT 99
[2024-05-25 12:30] VITALS: BP 130/90; TEMP 98; O2SAT 95
[2024-05-25 20:01] VITALS: BP 162/99; TEMP 97; O2SAT 97
[2024-05-26] VITALS (12 sets, daily range): BP systolic 108–180; BP diastolic 72–99; TEMP 97–97.5; O2SAT 92–99
[2024-05-26 06:23] LABS: BASO % 0.3 % (0.0-1.0); HEMATOCRIT 45.5 % (36.0-47.0); HEMOGLOBIN 15.4 g/dl (12.0-15.5); LYMPH % 8.9 % (24.0-44.0); MEAN CORPUSCULAR HEMOGLOBIN 30.7 pg (27.0-33.0); MEAN CORPUSCULAR HGB CONC 33.8 g/dl (32.0-36.5); MEAN CORPUSCULAR VOLUME 90.6 fl (80.0-96.0); NEUTROPHILS # 8.7 10^3/uL (1.5-8.5); NEUTROPHILS % 80.5 % (36.0-66.0); PLATELET COUNT, AUTOMATED 156 10^3/uL (150-450); RED BLOOD COUNT 5.02 10^6/uL (4.00-5.40); WHITE BLOOD COUNT 10.8 10^3/uL (4.0-10.0)
[2024-05-26 06:43] LABS: CALCIUM LEVEL 8.7 MG/DL (8.3-10.6); CREATININE FOR GFR 1.02 MG/DL (0.55-1.30); GLOMERULAR FILTRATION RATE 55.2 (>32); POTASSIUM SERUM 3.9 MMOL/L (3.5-5.1)
[2024-05-26] MEDS ORDERED: PHENYLephrine 500MCG 5ML (100MCG/ML) SYRINGE As Ordered ONE (07:15)
[2024-05-26] MEDS ORDERED: LIDOCAINE 2% 100MG/5ML SDV (FOR ANES.) As Ordered ONE (07:15)
[2024-05-26] MEDS ORDERED: fentaNYL 100 MCG/2 ML INJECTION As Ordered ONE (07:15)
[2024-05-26] MEDS ORDERED: propofoL 200 MG/20 ML VIAL As Ordered ONE (07:15)
[2024-05-26] MEDS ORDERED: ONDANSETRON 4MG 2ML VIAL As Ordered ONE (07:16)
[2024-05-26] MEDS: ceFAZolin SODIUM 2 GM VIAL As Ordered ONE (07:50)
[2024-05-26] MEDS: LR 1,000 ML IV SCH (09:30)
[2024-05-26] MEDS: fentaNYL 100 MCG/2 ML INJECTION IV PRN (09:33)
[2024-05-26] MEDS: ONDANSETRON 4MG 2ML VIAL IV PRN (09:51)
[2024-05-26] MEDS: HYDROMORPHONE HCL 0.5 MG/ 0.5 ML SYRINGE IV PRN (09:51)
[2024-05-26] MEDS: oxyCODONE 5MG TAB PO PRN (09:51)
[2024-05-26] MEDS: dexAMETHasone 4 MG TAB PO SCH (10:41)
[2024-05-26] MEDS: SCOPOLAMINE 1MG TRANSDERMAL PATCH TOP SCH (16:22)
[2024-05-26] MEDS: ACETAMINOPHEN 500 MG TAB PO SCH (20:23)
[2024-05-27] VITALS (10 sets, daily range): BP systolic 102–182; BP diastolic 50–96; TEMP 97–97.2; O2SAT 86–96
[2024-05-27] MEDS: SPIRONOLACTONE 12.5MG PER 1/2 TABLET PO SCH (10:16)
[2024-05-27] MEDS: CHLORTHALIDONE 12.5MG PER 1/2 TABLET PO SCH (10:16)
[2024-05-27] MEDS: APIXABAN 5 MG TAB (ELIQUIS) PO SCH (10:26)
[2024-05-27] MEDS: ONDANSETRON 4MG 2ML VIAL IV ONE (13:00)
[2024-05-27] MEDS: MIRALAX *UNIT DOSE* 17GM PACKET PO SCH (13:34)
[2024-05-27] MEDS: METOCLOPRAMIDE INJ 10MG/2ML VIAL IV ONE (13:34)
[2024-05-27] MEDS: MAALOX 30 ML SUSP *UDC PO ONE (13:34)
[2024-05-27] MEDS: METAMUCIL (PSYLLIUM) PACKET PO SCH (14:42)
[2024-05-27] MEDS: BISACODYL 10MG SUPP PR ONE (15:08)
[2024-05-27] MEDS: MOM 30ML SUSPENSION UDC PO ONE (15:10)
[2024-05-27] MEDS: METOCLOPRAMIDE INJ 10MG/2ML VIAL IV SCH (17:46)
[2024-05-27] MEDS: BISACODYL 10MG SUPP PR SCH (21:18)
[2024-05-28 03:10] VITALS: BP 128/70; TEMP 97.2; O2SAT 95
[2024-05-28 09:00] VITALS: BP 92/59
[2024-05-28] MEDS ORDERED: CHLORSP MT (09:10)
[2024-05-28] MEDS ORDERED: META28.32 PO (09:10)
[2024-05-28] MEDS ORDERED: ONDA-282 PO (09:10)
[2024-05-28] MEDS ORDERED: MAGN400O73 PO (09:10)
[2024-05-28] MEDS ORDERED: DRON2.5C11 PO (09:10)
[2024-05-28] MEDS ORDERED: MIRA3350 PO (09:10)
[2024-05-28] MEDS ORDERED: TRAM50TA2 PO (09:12)
[2024-05-28] MEDS ORDERED: MOUKOT60 MT (09:17)
[2024-05-28 12:00] VITALS: BP 120/95; TEMP 97.3; O2SAT 99
== END 2024-05-28 13:54 | disposition home health service (06) | DRG 981 ==
LOC: M ED 13:09 → M ED INP 18:49 → M MSPAV 20:50
PROVIDERS: ADMIT Internal Medicine Nephrology; ATTEND Student in an Organized Health Care Education/Training Program
PROC: 0HQEXZZ Repair Left Lower Arm Skin, External Approach (ICD-10-PCS; 2024-05-26)
PROC: 0PSJ04Z Reposition Left Radius with Internal Fixation Device, Open Approach (ICD-10-PCS; principal; 2024-05-26 07:30)
DX: J44.1 Chronic obstructive pulmonary disease with (acute) exacerbation (principal); J96.01 Acute respiratory failure with hypoxia; K92.1 Melena; N17.9 Acute kidney failure, unspecified; I48.20 Chronic atrial fibrillation, unspecified; S52.572A Other intraarticular fracture of lower end of left radius, initial encounter for closed fracture; E87.0 Hyperosmolality and hypernatremia; S22.31XA Fracture of one rib, right side, initial encounter for closed fracture; I10 Essential (primary) hypertension; K57.90 Diverticulosis of intestine, part unspecified, without perforation or abscess without bleeding; E86.0 Dehydration; K21.9 Gastro-esophageal reflux disease without esophagitis; E78.5 Hyperlipidemia, unspecified; M81.0 Age-related osteoporosis without current pathological fracture; H26.9 Unspecified cataract; J20.8 Acute bronchitis due to other specified organisms; J44.0 Chronic obstructive pulmonary disease with (acute) lower respiratory infection; W18.30XA Fall on same level, unspecified, initial encounter; Y92.238 Other place in hospital as the place of occurrence of the external cause; Y93.89 Activity, other specified; Y99.8 Other external cause status; I95.9 Hypotension, unspecified; S51.812A Laceration without foreign body of left forearm, initial encounter; Z66 Do not resuscitate; Z90.49 Acquired absence of other specified parts of digestive tract; Z79.01 Long term (current) use of anticoagulants; Z87.891 Personal history of nicotine dependence; Z79.52 Long term (current) use of systemic steroids; Z79.899 Other long term (current) drug therapy; Z88.0 Allergy status to penicillin; Z88.1 Allergy status to other antibiotic agents; Z88.2 Allergy status to sulfonamides; Z88.8 Allergy status to other drugs, medicaments and biological substances; E86.1 Hypovolemia; D64.9 Anemia, unspecified; B95.62 Methicillin resistant Staphylococcus aureus infection as the cause of diseases classified elsewhere; K59.00 Constipation, unspecified; R11.0 Nausea; R68.81 Early satiety

== ENCOUNTER → 2024-05-30 | Outpatient (CLI) | payer MEDICARE ==
[~2024-05-30] MED LIST changes: +CHLORSP MT; +DIGO0.123 PO; +DOXY-441 PO; +DRON2.5C11 PO; +MAGN400O73 PO; +META28.32 PO; +MIRA3350 PO; +MOUKOT60 MT; +ONDA-282 PO; +SPIR-10 PO; +TRAM50TA2 PO
[2024-05-30 11:38] LABS: HEMATOCRIT 45.5 % (36.0-47.0); HEMOGLOBIN 15.1 g/dl (12.0-15.5); MEAN CORPUSCULAR HEMOGLOBIN 31.1 pg (27.0-33.0); MEAN CORPUSCULAR HGB CONC 33.2 g/dl (32.0-36.5); MEAN CORPUSCULAR VOLUME 93.6 fl (80.0-96.0); PLATELET COUNT, AUTOMATED 107 10^3/uL (150-450); RED BLOOD COUNT 4.86 10^6/uL (4.00-5.40); WHITE BLOOD COUNT 17.9 10^3/uL (4.0-10.0)
[2024-05-30 12:07] LABS: ALBUMIN 2.1 G/DL (3.2-5.2); ALKALINE PHOSPHATASE 102 U/L (35-104); ALT/SGPT 27 U/L (7.0-40); AST/SGOT 35 U/L (<34); BILIRUBIN,TOTAL 1.1 MG/DL (0.3-1.2); BLOOD UREA NITROGEN 44 MG/DL (9-23); CALCIUM LEVEL 8.2 MG/DL (8.3-10.6); CARBON DIOXIDE LEVEL 28 MMOL/L (20-31); CHLORIDE LEVEL 106 MMOL/L (98-107); CHOLESTEROL LEVEL 119 MG/DL (<200); CHOLESTEROL RISK RATIO 2.76 (<5); CREATININE FOR GFR 0.94 MG/DL (0.55-1.30); GLOMERULAR FILTRATION RATE > 60.0 (>32); GLUCOSE, FASTING 82 MG/DL (74-106); HDL CHOLESTEROL 43.1 MG/DL (>40); LDL CHOLESTEROL 51.5 MG/DL (<100); MAGNESIUM LEVEL 1.7 MG/DL (1.8-2.4); NON-HDL-C 75.9 MG/DL; POTASSIUM SERUM 4.5 MMOL/L (3.5-5.1); SODIUM LEVEL 141 MMOL/L (136-145); TOTAL PROTEIN 5.4 G/DL (5.7-8.2); TRIGLYCERIDES LEVEL 122 MG/DL (<150)
== END ==
LOC: M LAB 10:20
PROVIDERS: ATTEND Physician Assistant
DX: I47.10 Supraventricular tachycardia, unspecified (principal); E78.00 Pure hypercholesterolemia, unspecified; I50.32 Chronic diastolic (congestive) heart failure; I48.0 Paroxysmal atrial fibrillation

== ENCOUNTER → 2024-06-08 | Outpatient (CLI) | payer MEDICARE | LOC: M SOG 07:58 | PROVIDERS: ATTEND Physician Assistant | DX: S52.572A Other intraarticular fracture of lower end of left radius, initial encounter for closed fracture (principal); X58.XXXA Exposure to other specified factors, initial encounter; Y92.9 Unspecified place or not applicable ==

== ENCOUNTER 2024-06-20 08:36 | Day surgery (SDC) | payer MEDICARE ==
[~2024-06-20] VITALS: Ht 152.4 cm; Wt 55.8 kg
[2024-06-20] MEDS ORDERED: propofoL 200 MG/20 ML VIAL As Ordered ONE (09:34)
[2024-06-20] MEDS ORDERED: PHENYLephrine 500MCG 5ML (100MCG/ML) SYRINGE As Ordered ONE (10:04)
[2024-06-20 10:24] VITALS: TEMP 97.2
[2024-06-20 11:06] VITALS: BP 114/58; O2SAT 95
== END 2024-06-20 11:16 | disposition home or self-care (01) ==
LOC: M OPP 08:36
PROVIDERS: ATTEND Internal Medicine Gastroenterology
DX: D12.0 Benign neoplasm of cecum (principal); D12.2 Benign neoplasm of ascending colon; K64.0 First degree hemorrhoids; K57.30 Diverticulosis of large intestine without perforation or abscess without bleeding; I48.91 Unspecified atrial fibrillation; I10 Essential (primary) hypertension; E78.00 Pure hypercholesterolemia, unspecified; R60.0 Localized edema; M19.90 Unspecified osteoarthritis, unspecified site; J45.909 Unspecified asthma, uncomplicated; J44.9 Chronic obstructive pulmonary disease, unspecified; Z87.891 Personal history of nicotine dependence; Z88.1 Allergy status to other antibiotic agents; Z88.2 Allergy status to sulfonamides; Z88.8 Allergy status to other drugs, medicaments and biological substances; Z79.01 Long term (current) use of anticoagulants; Z79.51 Long term (current) use of inhaled steroids; Z79.52 Long term (current) use of systemic steroids; Z79.899 Other long term (current) drug therapy; Z86.711 Personal history of pulmonary embolism
CPT/HCPCS: 45380; 45385; 88305; J2371

== ENCOUNTER → 2024-07-06 | Outpatient (CLI) | payer MEDICARE ==
[~2024-07-06] MED LIST changes: -DRON2.5C11 PO; +DRON2.5C17 PO; +PRED-1142 PO; -PRED1TABL PO
== END ==
LOC: M SOG 07:53
PROVIDERS: ATTEND Physician Assistant
DX: S52.572A Other intraarticular fracture of lower end of left radius, initial encounter for closed fracture (principal); Y93.9 Activity, unspecified; Y92.9 Unspecified place or not applicable

== ENCOUNTER → 2024-09-21 | Outpatient (CLI) | payer MEDICARE ==
[2024-09-21 12:43] LABS: CALCIUM LEVEL 10.2 MG/DL (8.3-10.6); CARBON DIOXIDE LEVEL 32.0 MMOL/L (20-31); CHLORIDE LEVEL 101.0 MMOL/L (98-107); CREATININE FOR GFR 1.06 MG/DL (0.55-1.30); GLOMERULAR FILTRATION RATE 52.5 (>32); POTASSIUM SERUM 4.4 MMOL/L (3.5-5.1); SODIUM LEVEL 146.0 MMOL/L (136-145)
== END ==
LOC: M LAB 08:30
PROVIDERS: ATTEND Physician Assistant
DX: I50.32 Chronic diastolic (congestive) heart failure (principal)

== ENCOUNTER → 2024-12-06 | Outpatient (CLI) | payer MEDICARE ==
[~2024-12-06] MED LIST changes: +HYDR-3713 PO
[2024-12-06 10:57] LABS: CALCIUM LEVEL 8.6 MG/DL (8.3-10.6); CARBON DIOXIDE LEVEL 28.0 MMOL/L (20-31); CHLORIDE LEVEL 103.0 MMOL/L (98-107); CREATININE FOR GFR 1.01 MG/DL (0.55-1.30); GLOMERULAR FILTRATION RATE 55.6 (>32); MAGNESIUM LEVEL 1.9 MG/DL (1.8-2.4); POTASSIUM SERUM 3.9 MMOL/L (3.5-5.1); SODIUM LEVEL 138.0 MMOL/L (136-145)
== END ==
LOC: M LAB 09:21
PROVIDERS: ATTEND Physician Assistant
DX: I50.32 Chronic diastolic (congestive) heart failure (principal)

== ENCOUNTER → 2024-12-15 | Outpatient (CLI) | payer MEDICARE | LOC: M SOG 07:26 | PROVIDERS: ATTEND Orthopaedic Surgery | DX: S82.125D Nondisplaced fracture of lateral condyle of left tibia, subsequent encounter for closed fracture with routine healing (principal) ==

== ENCOUNTER → 2024-12-28 | Outpatient (CLI) | payer MEDICARE ==
[2024-12-28 11:44] LABS: CHOLESTEROL LEVEL 122.0 MG/DL (<200); CHOLESTEROL RISK RATIO 2.98 (<5); LDL CHOLESTEROL 61.9 MG/DL (<100); NON-HDL-C 81.1 MG/DL; TRIGLYCERIDES LEVEL 96.0 MG/DL (<150)
[2024-12-28 11:46] LABS: TOTAL 25(OH) VITAMIN D 69.2 NG/ML (20.0-100.0)
[2024-12-28 17:24] LABS: ESTIMATED AVERAGE GLUCOSE 123.0 MG/DL (60-110)
== END ==
LOC: M PLALAB 09:13
PROVIDERS: ATTEND Student in an Organized Health Care Education/Training Program
DX: Z00.00 Encounter for general adult medical examination without abnormal findings (principal); E78.5 Hyperlipidemia, unspecified; Z87.39 Personal history of other diseases of the musculoskeletal system and connective tissue; I48.19 Other persistent atrial fibrillation; I11.0 Hypertensive heart disease with heart failure; I50.32 Chronic diastolic (congestive) heart failure; K21.9 Gastro-esophageal reflux disease without esophagitis; Z79.899 Other long term (current) drug therapy

== ENCOUNTER → 2024-12-28 | Outpatient (CLI) | payer MEDICARE | LOC: M EKG 09:47 | PROVIDERS: ATTEND Physician Assistant | DX: Z00.00 Encounter for general adult medical examination without abnormal findings (principal); I48.21 Permanent atrial fibrillation; E78.5 Hyperlipidemia, unspecified; Z87.39 Personal history of other diseases of the musculoskeletal system and connective tissue; I11.0 Hypertensive heart disease with heart failure; I50.32 Chronic diastolic (congestive) heart failure; K21.9 Gastro-esophageal reflux disease without esophagitis; Z79.899 Other long term (current) drug therapy ==

== ENCOUNTER → 2025-01-26 | Outpatient (CLI) | payer MEDICARE | LOC: M SOG 07:41 | PROVIDERS: ATTEND Orthopaedic Surgery | DX: S82.125D Nondisplaced fracture of lateral condyle of left tibia, subsequent encounter for closed fracture with routine healing (principal); X58.XXXD Exposure to other specified factors, subsequent encounter; Y92.9 Unspecified place or not applicable; Y93.9 Activity, unspecified; Y99.9 Unspecified external cause status ==